=== PATIENT | female | born 1985 | race American Indian/Alaskan Native ===

== ENCOUNTER 2020-05-11 13:38 | Inpatient (IN) | payer MEDICAID ==
[2020-05-11] MEDS ORDERED: hydrALAZINE 20 MG/1 ML INJ ONE (14:27)
[2020-05-11] MEDS: hydrALAZINE 20 MG/1 ML INJ IV PRN ×2 (14:34→16:09)
[2020-05-11 14:44] LABS: Hematocrit 30.2 % (30.3-42.9); Hemoglobin 10.6 gm/dl (10.1-14.3); Mean Corpuscular HGB Conc 35 % (30-34); Mean Corpuscular Volume 88 fl (79-97); Platelet Count 252 K/mm3 (140-440); Red Blood Count 3.44 M/mm3 (3.65-5.03); Red Cell Distribution Width 13.8 % (13.2-15.2)
[2020-05-11 14:54] LABS: Bacteria,Urine 1+ /HPF (Negative); Bilirubin,Urine NEG (Negative); Blood,Urine NEG (Negative); Color,Urine Yellow (Yellow); Hyaline Casts,Urine 1 /LPF; Mucus,Urine FEW /HPF
[2020-05-11 14:56] LABS: Protein,Urine >500 mg/dL (Negative)
[2020-05-11 15:00] LABS: Alanine Aminotransferase 22 units/L (7-56); Uric Acid 2.3 mg/dL (3.5-7.6)
[2020-05-11] MEDS: ACETAMINOPHEN 500 MG TAB PO PRN (16:14)
[2020-05-11] MEDS: BETAMET ACET/BETAMET NA PH 6 MG/ML INJ 5 ML MDV IM SCH (16:19)
[2020-05-11] MEDS ORDERED: MAGNESIUM SULFATE 4 GM/100 ML BAG IV ONE (17:00)
[2020-05-11] MEDS: LACTATED RINGERS 1,000 ML IV SCH (17:15)
[2020-05-11] MEDS: MAGNESIUM SULFATE 40GM/1000ML 40 GM/1,000 ML BAG IV SCH (17:45)
[2020-05-11] MEDS ORDERED: CALCIUM GLUCONATE 1000 MG/10 ML INJ IV ONE (18:00)
--- NOTE | 2020-05-11 20:32 | History and Physical Report ---
History of Present Illness Date of examination: 05/11/20 Date of admission: 05/11/20 18:53 Chief complaint: My blood pressure is high History of present illness: Pt is a 34 year old who presents from the office with complaint of headache and blood pressure in 160-170/90-110 range. This is higher than normal for this patient. Pt has a history of chronic hypertension and was recently diagnosed with MS. 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 She is GBS negative. 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 History: herpes Social history: single - Obstetrical History Expected Date of Delivery: 06/14/20 Actual Gestation: 35 Week(s) 1 Day(s) : 2 Number of Living Children: 1 Medications and Allergies Allergies Allergy/AdvReac Type Severity Reaction Status Date / Time No Known Allergies Allergy Unverified 05/11/20 13:53 Active Meds: Active Medications Acetaminophen (Acetaminophen 500 Mg Tab) 1,000 mg PO Q6H PRN PRN Reason: Pain, Mild (1-3) Last Admin: 05/11/20 16:14 Dose: 1,000 mg Documented by: Betamethasone Acet/Betameth SodPhos (Betamet Acet/Betamet Na Ph 6 Mg/Ml Inj 5 Ml Mdv) 12 mg IM Q24H OLEKSANDR Stop: 05/12/20 16:01 Last Admin: 05/11/20 16:19 Dose: 12 mg Documented by: Hydralazine HCl (Hydralazine 20 Mg/1 Ml Inj) 5 mg IV Q30MIN PRN PRN Reason: Blood Pressure Last Admin: 05/11/20 16:09 Dose: 5 mg Documented by: Lactated Ringer's (Lactated Ringers) 1,000 mls @ 125 mls/hr IV DIRECT OLEKSANDR Last Infusion: 05/11/20 17:45 Dose: 75 mls/hr Documented by: Magnesium Sulfate (Magnesium Sulfate 4gm/100ml) 4 gm in 100 mls @ 25 mls/hr IV ONCE ONE Stop: 05/11/20 20:59 Last Admin: 05/11/20 17:15 Dose: 25 mls/hr Documented by: Magnesium Sulfate (Magnesium Sulfate 40gm/1000ml) 40 gm in 1,000 mls @ 50 mls/hr IV DIRECT OLEKSANDR Last Admin: 05/11/20 17:45 Dose: 2 gm/hr, 50 mls/hr Documented by: Labetalol HCl (Labetalol 200 Mg Tab) 300 mg PO BID [facility] Last Admin: 05/11/20 16:14 Dose: 300 mg Documented by: Review of Systems All systems: negative Constitutional: weakness Cardiovascular: lightheadedness Genitourinary: deferred Neurological: weakness, numbness, tingling, gait dysfunction - Vital Signs Vital signs: Vital Signs Temp Resp 99.0 F 22 05/11/20 14:08 05/11/20 14:08 Temp Pulse Resp BP Pulse Ox 98.0 F 83 14 149/79 99 05/11/20 19:50 05/11/20 20:28 05/11/20 19:50 05/11/20 20:14 05/11/20 20:28 - Physical Exam Breasts: Cardiovascular: Regular rate, Normal S1, Normal S2 Lungs: Positive: Clear to auscultation, Normal air movement Abdomen: Positive: normal appearance, soft, normal bowel sounds. Negative: distention, tenderness Vulva: both: normal Cervix: Positive: lesion Uterus: Positive: normal size, normal contour Adnexa: both: normal Anus/Rectum: Positive: normal perianal skin, heme negative. Negative: rectal mass, hemorrhoids Extremities: Deep Tendon Reflex Grade: Normal +2 Results Result Diagrams: 05/11/20 14:15 05/11/20 14:15 Abnormal lab results 05/11/20 05/11/20 Range/Units 14:15 14:15 RBC 3.44 L (3.65-5.03) M/mm3 Hct 30.2 L (30.3-42.9) % MCHC 35 H (30-34) % Creatinine 0.4 L (0.6-1.2) mg/dL Uric Acid 2.3 L (3.5-7.6) mg/dL Lactate Dehydrogenase 190 H (91-180) units/L All other labs normal. Assessment and Plan Pt is here for monitoring and assessment secondary to chronic hypertension with likely superimposed preeclampsia. Will admit for monitoring and serial blood pressure. Will administer betamethasone for lung maturity. Begin magnesium for seizure prophylaxis and initiate 24 hour urine. Consult [facility] for co-management as patient is known to group.
[2020-05-11] MEDS ORDERED: diphenhydrAMINE 50 MG CAP PO ONE (22:29)
[2020-05-11] MEDS ORDERED: diphenhydrAMINE 50 MG CAP PO NR (23:30)
[2020-05-12] MEDS: hydrALAZINE 20 MG/1 ML INJ IV PRN ×2 (08:46→20:27)
[2020-05-12] MEDS: MAGNESIUM SULFATE 40GM/1000ML 40 GM/1,000 ML BAG IV SCH ×2 (14:09→23:34)
[2020-05-12] MEDS: BETAMET ACET/BETAMET NA PH 6 MG/ML INJ 5 ML MDV IM SCH (17:01)
--- NOTE | 2020-05-12 17:35 | Progress Note ---
Assessment and Plan IUP at 35.3 weeks with chronic hypertension and likely superimposed preeclampsia. We are awaiting completion of 24 hour urine and consult from [facility] regarding continuing to monitor vs. proceeding with delivery. Subjective - Subjective Date of service: 05/12/20 Interval history: Pt is a 34 year old who presents from the office with complaint of headache and blood pressure in 160-170/90-110 range. This is higher than normal for this patient. Pt has a history of chronic hypertension and was recently diagnosed with MS. 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 She is GBS negative. Patient reports: contractions (occasional) Objective - Vital Signs Vital Signs: Vital Signs - 12hr 05/12/20 05/12/20 05/12/20 05:33 05:38 05:43 Temperature Pulse Rate 97 H 90 93 H Respiratory Rate Blood Pressure Blood Pressure [Right] O2 Sat by Pulse 96 98 98 Oximetry 05/12/20 05/12/20 05/12/20 05:48 05:53 05:58 Temperature Pulse Rate 92 H 93 H 92 H Respiratory Rate Blood Pressure Blood Pressure [Right] O2 Sat by Pulse 98 99 100 Oximetry 05/12/20 05/12/20 05/12/20 06:03 06:06 06:08 Temperature Pulse Rate 90 94 H 93 H Respiratory Rate Blood Pressure 182/84 164/77 Blood Pressure [Right] O2 Sat by Pulse 99 99 Oximetry 05/12/20 05/12/20 05/12/20 06:13 06:18 06:23 Temperature Pulse Rate 89 95 H 95 H Respiratory Rate Blood Pressure 153/73 Blood Pressure [Right] O2 Sat by Pulse 98 100 98 Oximetry 05/12/20 05/12/20 05/12/20 06:28 06:33 06:38 Temperature Pulse Rate 96 H 94 H 94 H Respiratory Rate Blood Pressure Blood Pressure [Right] O2 Sat by Pulse 99 100 99 Oximetry 05/12/20 05/12/20 05/12/20 06:43 06:45 06:48 Temperature Pulse Rate 94 H 93 H 93 H Respiratory Rate Blood Pressure 161/78 Blood Pressure [Right] O2 Sat by Pulse 99 100 Oximetry 05/12/20 05/12/20 05/12/20 06:53 06:58 07:03 Temperature Pulse Rate 92 H 91 H 94 H Respiratory Rate Blood Pressure Blood Pressure [Right] O2 Sat by Pulse 99 98 98 Oximetry 05/12/20 05/12/20 05/12/20 07:08 07:13 07:14 Temperature Pulse Rate 93 H 91 H 92 H Respiratory Rate Blood Pressure 167/80 Blood Pressure [Right] O2 Sat by Pulse 98 98 Oximetry 05/12/20 05/12/20 05/12/20 07:18 07:23 07:28 Temperature Pulse Rate 94 H 92 H 92 H Respiratory Rate Blood Pressure Blood Pressure [Right] O2 Sat by Pulse 98 98 99 Oximetry 05/12/20 05/12/20 05/12/20 07:33 07:38 07:43 Temperature Pulse Rate 91 H 92 H 92 H Respiratory Rate Blood Pressure Blood Pressure [Right] O2 Sat by Pulse 97 99 99 Oximetry 05/12/20 05/12/20 05/12/20 07:44 07:48 07:53 Temperature Pulse Rate 90 90 97 H Respiratory Rate Blood Pressure 179/90 Blood Pressure [Right] O2 Sat by Pulse 99 100 Oximetry 05/12/20 05/12/20 05/12/20 07:58 08:03 08:08 Temperature Pulse Rate 96 H 99 H 98 H Respiratory Rate Blood Pressure Blood Pressure [Right] O2 Sat by Pulse 100 98 100 Oximetry 05/12/20 05/12/20 05/12/20 08:13 08:14 08:18 Temperature 98.1 F Pulse Rate 95 H 94 H Respiratory 18 Rate Blood Pressure 142/73 Blood Pressure 172/83 [Right] O2 Sat by Pulse 96 78 L 99 Oximetry 05/12/20 05/12/20 05/12/20 08:19 08:23 08:28 Temperature Pulse Rate 93 H 95 H 91 H Respiratory Rate Blood Pressure 172/83 Blood Pressure [Right] O2 Sat by Pulse 100 98 Oximetry 05/12/20 05/12/20 05/12/20 08:32 08:33 08:38 Temperature Pulse Rate 93 H 95 H 99 H Respiratory Rate Blood Pressure 182/87 Blood Pressure [Right] O2 Sat by Pulse 83 L 99 100 Oximetry 05/12/20 05/12/20 05/12/20 08:43 08:46 08:48 Temperature Pulse Rate 88 93 H 93 H Respiratory Rate Blood Pressure 174/78 174/78 Blood Pressure [Right] O2 Sat by Pulse 99 99 Oximetry 05/12/20 05/12/20 05/12/20 08:53 08:58 09:01 Temperature Pulse Rate 98 H 94 H 95 H Respiratory Rate Blood Pressure 183/93 Blood Pressure [Right] O2 Sat by Pulse 99 98 Oximetry 05/12/20 05/12/20 05/12/20 09:03 09:08 09:13 Temperature Pulse Rate 100 H 100 H 96 H Respiratory Rate Blood Pressure 224/98 Blood Pressure [Right] O2 Sat by Pulse 99 99 99 Oximetry 05/12/20 05/12/20 05/12/20 09:18 09:23 09:28 Temperature Pulse Rate 99 H 99 H 100 H Respiratory Rate Blood Pressure Blood Pressure [Right] O2 Sat by Pulse 99 98 98 Oximetry 05/12/20 05/12/20 05/12/20 09:33 09:38 09:43 Temperature Pulse Rate 99 H 98 H 96 H Respiratory Rate Blood Pressure 168/90 Blood Pressure [Right] O2 Sat by Pulse 100 99 100 Oximetry 05/12/20 05/12/20 05/12/20 09:48 09:53 09:58 Temperature Pulse Rate 101 H 97 H 96 H Respiratory Rate Blood Pressure 168/90 Blood Pressure [Right] O2 Sat by Pulse 100 99 100 Oximetry 05/12/20 05/12/20 05/12/20 10:03 10:08 10:13 Temperature Pulse Rate 96 H 99 H 95 H Respiratory Rate Blood Pressure 156/78 Blood Pressure [Right] O2 Sat by Pulse 99 100 100 Oximetry 05/12/20 05/12/20 05/12/20 10:18 10:23 10:28 Temperature Pulse Rate 95 H 93 H 91 H Respiratory Rate Blood Pressure Blood Pressure [Right] O2 Sat by Pulse 99 100 100 Oximetry 05/12/20 05/12/20 05/12/20 10:33 10:38 10:43 Temperature Pulse Rate 90 90 86 Respiratory Rate Blood Pressure 146/73 Blood Pressure [Right] O2 Sat by Pulse 99 99 98 Oximetry 05/12/20 05/12/20 05/12/20 10:48 10:53 10:58 Temperature Pulse Rate 89 86 88 Respiratory Rate Blood Pressure Blood Pressure [Right] O2 Sat by Pulse 98 98 99 Oximetry 05/12/20 05/12/20 05/12/20 11:03 11:08 11:13 Temperature Pulse Rate 88 88 92 H Respiratory Rate Blood Pressure 124/60 Blood Pressure [Right] O2 Sat by Pulse 98 98 98 Oximetry 05/12/20 05/12/20 05/12/20 11:18 11:23 11:28 Temperature Pulse Rate 89 88 89 Respiratory Rate Blood Pressure Blood Pressure [Right] O2 Sat by Pulse 100 100 99 Oximetry 05/12/20 05/12/20 05/12/20 11:33 11:38 11:43 Temperature Pulse Rate 90 89 88 Respiratory Rate Blood Pressure 130/62 Blood Pressure [Right] O2 Sat by Pulse 99 99 99 Oximetry 05/12/20 05/12/20 05/12/20 11:48 11:53 11:58 Temperature Pulse Rate 88 91 H 90 Respiratory Rate Blood Pressure Blood Pressure [Right] O2 Sat by Pulse 99 99 99 Oximetry 05/12/20 05/12/20 05/12/20 12:03 12:08 12:13 Temperature Pulse Rate 95 H 91 H 90 Respiratory Rate Blood Pressure 141/79 Blood Pressure [Right] O2 Sat by Pulse 99 100 99 Oximetry 05/12/20 05/12/20 05/12/20 12:18 12:23 12:28 Temperature 98.0 F Pulse Rate 95 H 90 97 H Respiratory 18 Rate Blood Pressure Blood Pressure 141/79 [Right] O2 Sat by Pulse 100 99 99 Oximetry 05/12/20 05/12/20 05/12/20 12:33 12:38 12:43 Temperature Pulse Rate 92 H 98 H 90 Respiratory Rate Blood Pressure 147/73 Blood Pressure [Right] O2 Sat by Pulse 99 98 98 Oximetry 05/12/20 05/12/20 05/12/20 12:48 12:53 12:58 Temperature Pulse Rate 92 H 89 90 Respiratory Rate Blood Pressure Blood Pressure [Right] O2 Sat by Pulse 98 98 99 Oximetry 05/12/20 05/12/20 05/12/20 13:03 13:08 13:13 Temperature Pulse Rate 89 90 87 Respiratory Rate Blood Pressure 146/70 Blood Pressure [Right] O2 Sat by Pulse 98 100 98 Oximetry 05/12/20 05/12/20 05/12/20 13:18 13:23 13:28 Temperature Pulse Rate 90 88 86 Respiratory Rate Blood Pressure Blood Pressure [Right] O2 Sat by Pulse 98 99 99 Oximetry 05/12/20 05/12/20 05/12/20 13:33 13:38 13:43 Temperature Pulse Rate 87 87 88 Respiratory Rate Blood Pressure 148/77 Blood Pressure [Right] O2 Sat by Pulse 97 98 98 Oximetry 05/12/20 05/12/20 05/12/20 13:48 13:53 13:58 Temperature Pulse Rate 86 85 85 Respiratory Rate Blood Pressure Blood Pressure [Right] O2 Sat by Pulse 98 97 97 Oximetry 05/12/20 05/12/20 05/12/20 14:03 14:08 14:13 Temperature Pulse Rate 85 88 89 Respiratory Rate Blood Pressure 149/79 Blood Pressure [Right] O2 Sat by Pulse 98 97 98 Oximetry 05/12/20 05/12/20 05/12/20 14:18 14:23 14:28 Temperature Pulse Rate 86 95 H 91 H Respiratory Rate Blood Pressure Blood Pressure [Right] O2 Sat by Pulse 98 98 99 Oximetry 05/12/20 05/12/20 05/12/20 14:33 14:38 14:43 Temperature Pulse Rate 83 87 86 Respiratory Rate Blood Pressure 160/80 Blood Pressure [Right] O2 Sat by Pulse 97 97 97 Oximetry 05/12/20 05/12/20 05/12/20 14:48 14:53 14:58 Temperature Pulse Rate 85 87 86 Respiratory Rate Blood Pressure Blood Pressure [Right] O2 Sat by Pulse 99 98 98 Oximetry 05/12/20 05/12/20 05/12/20 15:03 15:08 15:13 Temperature Pulse Rate 85 85 84 Respiratory Rate Blood Pressure Blood Pressure [Right] O2 Sat by Pulse 98 99 99 Oximetry 05/12/20 05/12/20 05/12/20 15:14 15:18 15:23 Temperature Pulse Rate 85 90 93 H Respiratory Rate Blood Pressure 144/72 Blood Pressure [Right] O2 Sat by Pulse 100 99 Oximetry 05/12/20 05/12/20 05/12/20 15:28 15:33 15:38 Temperature Pulse Rate 83 92 H 89 Respiratory Rate Blood Pressure Blood Pressure [Right] O2 Sat by Pulse 100 99 99 Oximetry 05/12/20 05/12/20 05/12/20 15:43 15:44 15:48 Temperature Pulse Rate 87 90 87 Respiratory Rate Blood Pressure 137/69 Blood Pressure [Right] O2 Sat by Pulse 99 98 Oximetry 05/12/20 05/12/20 05/12/20 15:53 15:58 16:03 Temperature Pulse Rate 87 87 87 Respiratory Rate Blood Pressure Blood Pressure [Right] O2 Sat by Pulse 98 99 98 Oximetry 05/12/20 05/12/20 05/12/20 16:04 16:05 16:08 Temperature 98.0 F Pulse Rate 86 88 93 H Respiratory 18 Rate Blood Pressure 154/83 Blood Pressure 154/83 [Right] O2 Sat by Pulse 97 98 Oximetry 05/12/20 05/12/20 05/12/20 16:13 16:18 16:23 Temperature Pulse Rate 86 91 H 85 Respiratory Rate Blood Pressure 144/68 Blood Pressure [Right] O2 Sat by Pulse 98 99 98 Oximetry 05/12/20 05/12/20 05/12/20 16:28 16:33 16:38 Temperature Pulse Rate 84 89 88 Respiratory Rate Blood Pressure Blood Pressure [Right] O2 Sat by Pulse 97 99 97 Oximetry 05/12/20 05/12/20 05/12/20 16:43 16:45 16:48 Temperature Pulse Rate 89 87 90 Respiratory Rate Blood Pressure 145/69 Blood Pressure [Right] O2 Sat by Pulse 98 98 Oximetry 05/12/20 05/12/20 05/12/20 16:53 16:58 17:03 Temperature Pulse Rate 85 90 91 H Respiratory Rate Blood Pressure Blood Pressure [Right] O2 Sat by Pulse 100 98 98 Oximetry 05/12/20 05/12/20 05/12/20 17:08 17:13 17:18 Temperature Pulse Rate 95 H 86 95 H Respiratory Rate Blood Pressure 165/89 Blood Pressure [Right] O2 Sat by Pulse 97 100 100 Oximetry 05/12/20 05/12/20 17:23 17:28 Temperature Pulse Rate 93 H 90 Respiratory Rate Blood Pressure Blood Pressure [Right] O2 Sat by Pulse 99 99 Oximetry - Exam Breasts: deferred Cardiovascular: Regular rate, Normal S1, Normal S2 Lungs: Clear to auscultation, Normal air movement Abdomen: Present: normal appearance, normal bowel sounds Uterus: Present: normal FHR: auscultation normal Cervical Dilatation: 1 Cervical Effacement Percentage: 40 station: -3 Extremities: other (weakness on right side) Deep Tendon Reflex Grade: Dull/Diminished +1 - Labs Labs: Abnormal Labs 05/11/20 05/11/20 05/12/20 14:15 14:15 00:29 RBC 3.44 L Hct 30.2 L MCHC 35 H Creatinine 0.4 L Uric Acid 2.3 L Magnesium 4.10 H Lactate Dehydrogenase 190 H 05/12/20 05/12/20 05:44 14:23 RBC Hct MCHC Creatinine Uric Acid Magnesium 4.40 H 4.50 H Lactate Dehydrogenase Laboratory Results - last 24 hr 05/12/20 05/12/20 05/12/20 00:29 05:44 14:23 Magnesium 4.10 H 4.40 H 4.50 H
[2020-05-12] MEDS ORDERED: diphenhydrAMINE 50 MG/ML VIAL IV PRN (21:22)
[2020-05-12] MEDS ORDERED: miSOPROStol 200 MCG TAB PR PRN (21:26)
[2020-05-12] MEDS ORDERED: ONDANSETRON 4 MG/2 ML INJ IV PRN (21:26)
[2020-05-12] MEDS ORDERED: MINERAL OIL 30 ML ORAL LIQD PO PRN (21:26)
[2020-05-12] MEDS ORDERED: fentaNYL 100 MCG/2 ML INJ IV PRN (21:26)
[2020-05-12] MEDS ORDERED: ePHEDrine SULFATE 50 MG/1 ML INJ IV PRN (21:26)
[2020-05-12] MEDS ORDERED: NALOXONE 0.4 MG/1 ML INJ IV PRN (21:26)
[2020-05-12] MEDS ORDERED: AMPICILLIN/NS 2 GM/100 ML 2 GM/100 ML BAG IV ONE (21:26)
[2020-05-12] MEDS ORDERED: TERBUTALINE 1 MG/1 ML INJ SUB-Q PRN (21:26)
[2020-05-12] MEDS ORDERED: LIDOCAINE (2%) 20 MG/1 ML VIAL 20 ML MDV INFILTRATI ONE (21:26)
[2020-05-12] MEDS ORDERED: BUTORPHANOL 2 MG/1 ML INJ IV PRN ×2 (21:26→21:34)
[2020-05-12] MEDS ORDERED: OXYTOCIN 10 UNIT/1 ML INJ IM PRN (21:26)
[2020-05-12] MEDS ORDERED: LACTATED RINGERS 1,000 ML IV SCH (21:30)
--- NOTE | 2020-05-12 21:36 | Event Note ---
Date: 05/12/20 On-call provider notified of 24 hr urine protein of 2167.50 mg. Diagnosis of chronic hypertension with superimposed preeclampsia confirmed. No documentation of presentation on chart. Ultrasound for presentation and EFW. If cephalic, proceed with induction of labor. Magnesium sulfate discontinued earlier without contacting on-call provider. Resume magnesium sulfate for seizure prophylaxis.
[2020-05-12] MEDS ORDERED: MAGNESIUM SULFATE 4 GM/100 ML BAG IV ONE (21:48)
[2020-05-12] MEDS ORDERED: OXYTOCIN DRIP 30 UNITS/500 ML BAG IV SCH ×2 (22:00)
--- NOTE | 2020-05-12 22:45 | Ultrasound Report ---
ULTRASOUND OBSTETRIC LIMITED INDICATION / CLINICAL INFORMATION: IUP at 35 wks, chtn with superimposed preeclampsia. Clinical Gestational Age (GA) in weeks, days: 35 weeks 2 days TECHNIQUE: Transabdominal. COMPARISON: None available. FINDINGS: HEART RATE (beats per minute): 125 AMNIOTIC FLUID INDEX (cm) = 13.6 (normal = 7-24 cm) PRESENTATION: Cephalic. ADDITIONAL FINDINGS: Placenta is located anteriorly without evidence of previa. IMPRESSION: 1. Single viable IUP in a cephalic presentation with normal LITA. Signer Name: Christy Garcia MD Signed: 05/12/2020 10:40 PM Workstation Name: [id number]
[2020-05-12] MEDS ORDERED: DINOPROSTONE 10 MG VAG SUPP VG ONE (23:15)
[2020-05-13] MEDS ORDERED: AMPICILLIN/NS 1 GM/50 ML 1 GM/50 ML BAG IV SCH (01:28)
[2020-05-13] MEDS: hydrALAZINE 20 MG/1 ML INJ IV PRN ×3 (01:39→03:49)
[2020-05-13] MEDS: ACETAMINOPHEN 500 MG TAB PO PRN (07:35)
[2020-05-13] MEDS: valACYclovir 500 MG TAB PO SCH (12:01)
--- NOTE | 2020-05-13 12:06 | Progress Note ---
Assessment and Plan A: IUP at 35w3d s/p Betamethasone 12 mg IM x 2 doses Chronic hypertension with superimposed preeclampsia; on magnesium sulfate for seizure prophylaxis, Labetalol 300 mg BID, Hydralazine PRN undergoing induction of labor, s/p cervidil Morbid Obesity BMI 47 New diagnosis of MS Genital Herpes without lesion or prodrome GBS unknown P: Continue induction with low dose pitocin Closely monitor maternal and status Subjective - Subjective Date of service: 05/13/20 Principal diagnosis: IUP at 35w3d, CHTN with superimposed preeclampsia, MO, MS Interval history: No issues overnight. Minimal contraction on cervidil. Patient reports: movement normal, contractions (occasional), no new complaints, no loss of fluid, no vaginal bleeding Objective - Vital Signs Vital Signs: Vital Signs - 12hr 05/13/20 05/13/20 05/13/20 00:08 00:12 00:17 Temperature Pulse Rate 83 82 86 Respiratory Rate Blood Pressure 157/79 146/73 O2 Sat by Pulse 98 99 Oximetry 05/13/20 05/13/20 05/13/20 00:22 00:27 00:32 Temperature Pulse Rate 86 87 78 Respiratory Rate Blood Pressure O2 Sat by Pulse 99 99 98 Oximetry 05/13/20 05/13/20 05/13/20 00:37 00:42 00:47 Temperature Pulse Rate 82 78 75 Respiratory Rate Blood Pressure 145/92 O2 Sat by Pulse 99 99 99 Oximetry 05/13/20 05/13/20 05/13/20 00:52 00:57 01:02 Temperature Pulse Rate 76 81 82 Respiratory Rate Blood Pressure O2 Sat by Pulse 99 99 99 Oximetry 05/13/20 05/13/20 05/13/20 01:07 01:12 01:17 Temperature Pulse Rate 82 81 83 Respiratory Rate Blood Pressure 181/88 O2 Sat by Pulse 98 99 98 Oximetry 05/13/20 05/13/20 05/13/20 01:22 01:27 01:32 Temperature Pulse Rate 82 85 84 Respiratory Rate Blood Pressure O2 Sat by Pulse 97 97 97 Oximetry 05/13/20 05/13/20 05/13/20 01:37 01:39 01:42 Temperature Pulse Rate 81 84 84 Respiratory Rate Blood Pressure 177/83 177/83 175/84 O2 Sat by Pulse 99 99 Oximetry 05/13/20 05/13/20 05/13/20 01:47 01:52 01:57 Temperature Pulse Rate 84 81 85 Respiratory Rate Blood Pressure O2 Sat by Pulse 99 98 98 Oximetry 05/13/20 05/13/20 05/13/20 02:02 02:07 02:12 Temperature Pulse Rate 86 84 82 Respiratory Rate Blood Pressure 171/80 O2 Sat by Pulse 98 98 98 Oximetry 05/13/20 05/13/20 05/13/20 02:17 02:22 02:27 Temperature Pulse Rate 94 H 89 91 H Respiratory Rate Blood Pressure 171/80 O2 Sat by Pulse 99 98 98 Oximetry 05/13/20 05/13/20 05/13/20 02:32 02:37 02:42 Temperature Pulse Rate 90 95 H 90 Respiratory Rate Blood Pressure 143/70 O2 Sat by Pulse 98 98 99 Oximetry 05/13/20 05/13/20 05/13/20 02:47 02:52 02:57 Temperature Pulse Rate 91 H 90 94 H Respiratory Rate Blood Pressure O2 Sat by Pulse 98 99 98 Oximetry 05/13/20 05/13/20 05/13/20 03:02 03:07 03:12 Temperature Pulse Rate 89 92 H 88 Respiratory Rate Blood Pressure O2 Sat by Pulse 99 98 99 Oximetry 05/13/20 05/13/20 05/13/20 03:13 03:17 03:22 Temperature Pulse Rate 90 89 89 Respiratory Rate Blood Pressure 175/82 O2 Sat by Pulse 99 99 Oximetry 05/13/20 05/13/20 05/13/20 03:27 03:32 03:37 Temperature Pulse Rate 92 H 92 H 90 Respiratory Rate Blood Pressure O2 Sat by Pulse 99 99 99 Oximetry 05/13/20 05/13/20 05/13/20 03:42 03:47 03:49 Temperature Pulse Rate 90 91 H 92 H Respiratory Rate Blood Pressure 175/84 175/84 O2 Sat by Pulse 98 98 Oximetry 05/13/20 05/13/20 05/13/20 03:52 03:53 03:57 Temperature 98.1 F Pulse Rate 95 H 95 H Respiratory 20 Rate Blood Pressure O2 Sat by Pulse 99 98 99 Oximetry 05/13/20 05/13/20 05/13/20 04:02 04:05 04:07 Temperature Pulse Rate 91 H 91 H 101 H Respiratory Rate Blood Pressure 141/77 O2 Sat by Pulse 99 98 Oximetry 05/13/20 05/13/20 05/13/20 04:11 04:12 04:13 Temperature Pulse Rate 94 H 95 H 92 H Respiratory Rate Blood Pressure 137/72 155/73 O2 Sat by Pulse 98 Oximetry 05/13/20 05/13/20 05/13/20 04:17 04:22 04:27 Temperature Pulse Rate 95 H 98 H 93 H Respiratory Rate Blood Pressure O2 Sat by Pulse 99 99 99 Oximetry 05/13/20 05/13/20 05/13/20 04:32 04:37 04:42 Temperature Pulse Rate 97 H 98 H 98 H Respiratory Rate Blood Pressure O2 Sat by Pulse 99 99 99 Oximetry 05/13/20 05/13/20 05/13/20 04:43 04:47 04:52 Temperature Pulse Rate 96 H 94 H 98 H Respiratory Rate Blood Pressure 151/76 O2 Sat by Pulse 99 99 Oximetry 05/13/20 05/13/20 05/13/20 04:57 05:02 05:07 Temperature Pulse Rate 95 H 105 H 95 H Respiratory Rate Blood Pressure O2 Sat by Pulse 99 99 98 Oximetry 05/13/20 05/13/20 05/13/20 05:12 05:17 05:22 Temperature Pulse Rate 96 H 94 H 94 H Respiratory Rate Blood Pressure 133/70 O2 Sat by Pulse 99 97 97 Oximetry 05/13/20 05/13/20 05/13/20 05:27 05:32 05:37 Temperature Pulse Rate 96 H 93 H 98 H Respiratory Rate Blood Pressure O2 Sat by Pulse 98 98 98 Oximetry 05/13/20 05/13/20 05/13/20 05:42 05:47 05:52 Temperature Pulse Rate 98 H 98 H 101 H Respiratory Rate Blood Pressure 134/66 O2 Sat by Pulse 97 97 97 Oximetry 05/13/20 05/13/20 05/13/20 05:57 06:02 06:07 Temperature Pulse Rate 108 H 98 H 99 H Respiratory Rate Blood Pressure O2 Sat by Pulse 99 99 98 Oximetry 05/13/20 05/13/20 05/13/20 06:12 06:13 06:17 Temperature Pulse Rate 96 H 96 H 103 H Respiratory Rate Blood Pressure 135/64 O2 Sat by Pulse 98 99 Oximetry 05/13/20 05/13/20 05/13/20 06:22 06:27 06:32 Temperature Pulse Rate 100 H 94 H 97 H Respiratory Rate Blood Pressure O2 Sat by Pulse 99 98 99 Oximetry /20/21 /20/21 /20/21 06:38 06:43 06:48 Temperature Pulse Rate 97 H 96 H 95 H Respiratory Rate Blood Pressure 156/70 O2 Sat by Pulse 99 99 98 Oximetry 20/21 /20/21 /20/21 06:53 06:58 07:03 Temperature Pulse Rate 92 H 98 H 97 H Respiratory Rate Blood Pressure O2 Sat by Pulse 98 99 98 Oximetry 20/21 /20/21 /20/21 07:08 07:13 07:18 Temperature Pulse Rate 97 H 95 H 94 H Respiratory Rate Blood Pressure 144/76 O2 Sat by Pulse 98 99 98 Oximetry 20/14 05/20/21 /20/ 07:23 07:28 07:33 Temperature Pulse Rate 95 H 96 H 96 H Respiratory Rate Blood Pressure O2 Sat by Pulse 98 99 98 Oximetry 20/20/21 // 07:38 07:43 07:44 Temperature Pulse Rate 94 H 94 H 93 H Respiratory Rate Blood Pressure 163/80 O2 Sat by Pulse 99 99 Oximetry 20/21 /20/21 /20/21 07:48 07:53 07:58 Temperature Pulse Rate 94 H 98 H 94 H Respiratory Rate Blood Pressure O2 Sat by Pulse 99 98 99 Oximetry 20/21 /20/21 /20/21 08:03 08:08 08:12 Temperature Pulse Rate 93 H 92 H 90 Respiratory Rate Blood Pressure 151/72 O2 Sat by Pulse 98 99 Oximetry 20/21 /20/21 /20/21 08:13 08:18 08:23 Temperature Pulse Rate 92 H 102 H 99 H Respiratory Rate Blood Pressure O2 Sat by Pulse 98 98 99 Oximetry 20/21 /20/21 /20/21 08:28 08:33 08:38 Temperature Pulse Rate 98 H 99 H 95 H Respiratory Rate Blood Pressure O2 Sat by Pulse 99 98 99 Oximetry 20/21 /20/21 /20/21 08:43 08:48 08:53 Temperature Pulse Rate 96 H 94 H 88 Respiratory Rate Blood Pressure 140/81 O2 Sat by Pulse 99 98 99 Oximetry 20/21 05/13/20 05/13/20 08:58 09:03 09:08 Temperature Pulse Rate 88 88 90 Respiratory Rate Blood Pressure O2 Sat by Pulse 99 100 100 Oximetry 05/13/20 05/13/20 05/13/20 09:13 09:14 09:18 Temperature Pulse Rate 95 H 90 92 H Respiratory Rate Blood Pressure 197/89 O2 Sat by Pulse 99 99 Oximetry 05/13/2005/13/05/13/20 09:23 09:28 09:33 Temperature Pulse Rate 89 89 96 H Respiratory Rate Blood Pressure O2 Sat by Pulse 99 100 99 Oximetry 05/13/2005/13/05/13/20 09:38 09:41 09:43 Temperature Pulse Rate 92 H 91 H 89 Respiratory Rate Blood Pressure 186/92 186/92 O2 Sat by Pulse 99 99 Oximetry 05/13/20 05/13/20 05/13/20 09:48 09:53 09:58 Temperature Pulse Rate 94 H 90 85 Respiratory Rate Blood Pressure O2 Sat by Pulse 100 99 100 Oximetry 05/13/20 05/13/20 05/13/20 10:03 10:08 10:13 Temperature Pulse Rate 93 H 91 H 86 Respiratory Rate Blood Pressure 148/89 O2 Sat by Pulse 99 98 99 Oximetry 05/13/2005/13/05/13/20 10:18 10:23 10:28 Temperature Pulse Rate 83 82 83 Respiratory Rate Blood Pressure O2 Sat by Pulse 98 98 98 Oximetry 05/13/2005/13/05/13/20 10:33 10:38 10:43 Temperature Pulse Rate 79 82 83 Respiratory Rate Blood Pressure 176/82 O2 Sat by Pulse 98 98 98 Oximetry 05/13/2005/13/05/13/20 10:48 10:53 10:58 Temperature Pulse Rate 81 86 79 Respiratory Rate Blood Pressure O2 Sat by Pulse 98 97 98 Oximetry 05/13/2020/05/13/20 11:03 11:08 11:13 Temperature Pulse Rate 86 82 92 H Respiratory Rate Blood Pressure O2 Sat by Pulse 98 97 99 Oximetry 05/13/2020/05/13/20 11:14 11:18 11:23 Temperature Pulse Rate 81 83 83 Respiratory Rate Blood Pressure 151/83 O2 Sat by Pulse 98 98 Oximetry 05/13/2005/1305/13/20 11:28 11:33 11:38 Temperature Pulse Rate 81 84 82 Respiratory Rate Blood Pressure O2 Sat by Pulse 99 99 98 Oximetry 05/13/20 05/13/20 05/13/20 11:43 11:48 11:53 Temperature Pulse Rate 83 89 84 Respiratory Rate Blood Pressure 154/85 O2 Sat by Pulse 99 98 99 Oximetry 05/13/20 05/13/20 11:58 12:03 Temperature Pulse Rate 86 88 Respiratory Rate Blood Pressure O2 Sat by Pulse 98 99 Oximetry - Exam Breasts: deferred Abdomen: Present: soft (obese, gravid ) Uterus: Present: normal (gravid ) FHR: auscultation normal Uterine Contraction Monitor Mode: External Cervical Dilatation: 1 Cervical Effacement Percentage: 40 station: -3 Uterine Contraction Pattern: Irregular Uterine Tone Measurement Phase: Resting Uterine Contraction Intensity: Mild Extremities: edema (trace ) - Labs Labs: Abnormal Labs 05/11/20 05/11/20 05/12/20 14:15 14:15 00:29 RBC 3.44 L Hct 30.2 L MCHC 35 H Creatinine 0.4 L Uric Acid 2.3 L Magnesium 4.10 H Lactate Dehydrogenase 190 H Ur Total Protein 24 Hr Urine Total Protein 05/12/20 05/12/20 05/12/20 05:44 14:23 18:40 RBC Hct MCHC Creatinine Uric Acid Magnesium 4.40 H 4.50 H 4.00 H Lactate Dehydrogenase Ur Total Protein 24 Hr Urine Total Protein 05/12/20 05/13/20 05/13/20 20:30 00:48 05:57 RBC Hct MCHC Creatinine Uric Acid Magnesium 4.60 H 4.70 H Lactate Dehydrogenase Ur Total Protein 24 Hr 2167.50 H Urine Total Protein 85 H Laboratory Results - last 24 hr 05/12/20 05/12/20 05/12/20 14:23 18:40 20:30 Magnesium 4.50 H 4.00 H Urine Total Volume 2550 Ur Total Protein 24 Hr 2167.50 H Urine Total Protein 85 H 05/13/20 05/13/20 00:48 05:57 Magnesium 4.60 H 4.70 H Urine Total Volume Ur Total Protein 24 Hr Urine Total Protein
[2020-05-13] MEDS: MAGNESIUM SULFATE 40GM/1000ML 40 GM/1,000 ML BAG IV SCH (19:37)
[2020-05-13] MEDS ORDERED: AMPICILLIN/NS 2 GM/100 ML 2 GM/100 ML BAG IV ONE ×2 (20:00)
--- NOTE | 2020-05-14 00:55 | Anesthesia Consultation ---
Anesthesia Consult and Med Hx Date of service: 05/14/20 - Airway Anesthetic Teeth Evaluation: Poor ROM Head & Neck: Adequate Mental/Hyoid Distance: Adequate Mallampati Class: Class III Intubation Access Assessment: Possibly Difficult - Pulmonary Exam CTA: Yes - Cardiac Exam Cardiac Exam: RRR - Pre-Operative Health Status ASA Pre-Surgery Classification: ASA3 Proposed Anesthetic Plan: Epidural - Pulmonary Hx Smoking: Yes (stop 2020) Hx Asthma: No Hx Respiratory Symptoms: No SOB: No COPD: No Home Oxygen Therapy: No Hx Pneumonia: No Hx Sleep Apnea: No - Cardiovascular System Hx Hypertension: Yes (CHTN) Hx Coronary Artery Disease: No Hx Heart Attack/AMI: No Hx Angina: No Hx Percutaneous Transluminal Coronary Angioplasty (PTCA): No Hx Cardia Arrhythmia: No Hx Pacemaker: No Hx Internal Defibrillator: No Hx Valvular Heart Disease: No Hx Heart Murmur: No Hx Peripheral Vascular Disease: No - Central Nervous System Hx Neuromuscular Disorder: Yes (Multiple Sclerosis) Hx Seizures: No CVA: No Hx Back Pain: Yes (walks with cane) Hx Psychiatric Problems: No - Gastrointestinal Hx Ulcer: No Hx Gastroesophageal Reflux Disease: Yes - Endocrine Hx Renal Disease: No Hx End Stage Renal Disease: No Hx Cirrhosis: No Hx Liver Disease: No Hx Insulin Dependent Diabetes: No Hx Non-Insulin Dependent Diabetes: No Hx Thyroid Disease: No Hx Hypothyroidism: No Hx Hyperthyroidism: No - Hematic Hx Anemia: No Hx Sickle Cell Disease: No - Other Systems Hx Alcohol Use: No Hx Substance Use: No Hx Cancer: No Hx Obesity: Yes
--- NOTE | 2020-05-14 01:54 | Progress Note ---
Labor Epidural - Labor Epidural Start Time: 01:07 Stop Time: 01:25 Performed by:: CHRISS MARTELL Procedure: Patient is requesting epidural for labor and pain. H&P, labs were reviewed. Patient IDed, H&P reviewed, all questions and concerns were answered, and consent was signed. Timeout was performed at bedside. Patient in sitting position. Sterile prep and drape was performed. 3ml of 1% lidocaine skin wheal at L[3]- L [4]. 18-gauge Tuohy epidural needle was advanced to loss of resistance with air technique 9.5cm. Negative CSF negative blood. Epidural catheter advanced to [12] centimeters. [negative] Aspiration [negative] test dose. Sterile dressing applied. Patient tolerated procedure.
[2020-05-14] MEDS ORDERED: BICITRA ORAL LIQD 30ML PO ONE (02:44)
[2020-05-14] MEDS ORDERED: SODIUM BICARB 8.4% 50 MEQ/50 ML VIAL IV ONE (02:55)
[2020-05-14] MEDS ORDERED: ONDANSETRON 4 MG/2 ML INJ ONE ×2 (02:55)
[2020-05-14] MEDS ORDERED: LIDOCAINE 2%/EPINEPHRINE 1:200,000 VIAL (20 ML) INFILTRATI ONE (02:55)
[2020-05-14] MEDS ORDERED: METOCLOPRAMIDE 10 MG/2 ML INJ IV NR (03:00)
[2020-05-14] MEDS ORDERED: FAMOTIDINE 20 MG/2 ML INJ IV NR (03:00)
[2020-05-14] MEDS ORDERED: ceFAZolin/STERILE WATER 2 GM/20 ML SYRINGE IV NR (03:00)
[2020-05-14] MEDS ORDERED: LIDOCAINE MPF (2%) 20 MG/1 ML VIAL 5 ML ONE ×2 (03:15→05:49)
[2020-05-14] MEDS ORDERED: KETOROLAC 30 MG/1 ML INJ ONE (03:26)
--- NOTE | 2020-05-14 04:13 | Procedure Note ---
OB Delivery Note - Delivery Date of Delivery: 05/14/20 Surgeon: DOMINGO CORONEL Estimated blood loss: 1000cc - Section Preop diagnosis: nonreassuring FHR tracing, other (chronic hypertension with superimposed preeclampsia ) Postop diagnosis: same section procedure: section, primary low transverse Disposition: PACU Complications: uterine atony Narrative: Please see operative report - A at 1 minute: 7 at 5 minutes: 9 Gender: Female (2330g (5lb 2oz) @ 0309 am)
--- NOTE | 2020-05-14 04:13 | Operative Report ---
Operative Report Operative Report: Date of procedure: May 14, 2020 Preoperative diagnosis: 1) IUP at 35w4d 2) Nonreassuring tracing, repe titive deep variable decels to 60 3) Chronic Hypertension with Superimposed Preeclampsia 4) Morbid Obesity BMI 47 Postoperative diagnosis: Same 5) Uterine Atony Procedure: Primary low transverse section Surgeon: Kiah Jauregui M.D. Anesthesia: Regional Findings: 1) Viable female , Apgars 7 and 9, weight 2330 g, (5 lb 2 oz) in cephalic presentation. Nuchal cord x 2 2) Normal-appearing uterus ovaries and tubes Estimated blood loss: 1000 mL IV fluids: 1000 mL Urine output: 50 mL, clear at the end of the procedure Drains: Linder to gravity Specimens: Placenta to pathology Complications:None. Counts correct x 3 Disposition: Stable to PACU Indication for procedure: Pt is a 34 year old at 35w4d who was undergoing induction of labor for chronic hypertension with superimposed preeclampsia. She progressed to 7 cm but began to have repetitive deep variable decelerations to 60s. The decision was made to proceed with section. Operation in detail: After the risks, benefits, alternatives and complications were explained to the patient she gave informed consent for the procedure. She was subsequently taken to the operating room where regional anesthesia was noted to be adequate. She was subsequently placed in the dorsal supine position with leftward tilt and prepped and draped in a normal sterile fashion. heart tones were noted prior to incision. A timeout was performed. A Pfannenstiel skin incision was made with the knife and carried down to the layer of the fascia with the Bovie. The fascia was incised in the midline and the fascial incision was extended bilaterally with the Bovie. The fascial incision was then stretched. The rectus muscles were then in the midline and partially transected for adequate visualization. The peritoneum was then entered bluntly. The peritoneal incision was extended with good visualization of the bladder. The peritoneal incision was then stretched. An Waqas retractor was placed. The bladder blade was then placed. The vesicouterine peritoneum was grasped with smooth pick ups and incised with Metzenbaum scissors. A bladder flap was then created digitally and the bladder blade was replaced. A transverse incision was made in the lower uterine segment with a knife and extended bilaterally with the bandage scissors. head delivered with ease, nuchal cord x 2 was reduced, followed by delivery of shoulders and body. bulb suctioned at delivery. Cord clamped and cut. handed to NICU staff in attendance. Cord blood was collected. The placenta was then delivered manually. The uterus was then cleared of all clots and debris. The hysterotomy was then reapproximated with 0 Vicryl in a running locked fashion. A second layer of the same suture was used in imbricating fashion. Additional figure of eights of 2-0 Vicryl were placed at the left edge of the hysterotomy for hemostasis. The hysterotomy was inspected and hemostasis was noted. The gutters were irrigated and cleared of all clots and debris. Surgicel was placed over the hysterotomy. The Waqas retractor was removed. The peritoneum was reapproximated with 2-0 Vicryl in a running fashion incorporating the rectus muscles. Surgicel was placed over the rectus muscles. The fascia was reapproximated with 0 Vicryl in a running fashion. The subcutaneous tissue was reapproximated with 3-0 Vicryl in a running fashion. The skin was reapproximated with maricruz. The incision was then covered with a pressure dressing. The procedure was then ended. The patient tolerated the procedure well and was taken to the PACU in stable condition. All instrument, lap, and needle counts were correct 3. Misoprostol 800 mcg was placed per rectum at the end of the case.
[2020-05-14] MEDS ORDERED: WITCH HAZEL/ GLYCERIN PAD TP PRN (04:21)
[2020-05-14] MEDS ORDERED: MORPHINE 4 MG/1 ML INJ IV PRN (04:21)
[2020-05-14] MEDS ORDERED: LANOLIN/ZINC/DIMETHICONE (LANSINOH) 7 GM TP PRN (04:21)
[2020-05-14] MEDS ORDERED: SIMETHICONE 80 MG CHEW TAB PO PRN (04:21)
[2020-05-14] MEDS ORDERED: NALOXONE 0.4 MG/1 ML INJ IV PRN ×2 (04:21→04:22)
[2020-05-14] MEDS ORDERED: IBUPROFEN 800 MG TAB PO PRN (04:21)
[2020-05-14] MEDS ORDERED: MORPHINE 2 MG/1 ML INJ IV PRN (04:21)
[2020-05-14] MEDS ORDERED: ONDANSETRON 4 MG/2 ML INJ IV PRN (04:22)
[2020-05-14] MEDS ORDERED: HYDROmorphone 1 MG/1 ML INJ IV PRN (04:22)
[2020-05-14] MEDS ORDERED: AMMONIA INHALANT IH ONE (04:55)
[2020-05-14] MEDS ORDERED: CARBOPROST TROMETHAMINE 250 MCG/1 ML INJ IM ONE (04:59)
[2020-05-14] MEDS ORDERED: KETOROLAC 30 MG/1 ML INJ IV SCH (05:00)
[2020-05-14] MEDS ORDERED: OXYTOCIN DRIP 30 UNITS/500 ML BAG IV SCH (05:00)
[2020-05-14] MEDS ORDERED: SODIUM CHLORIDE 0.9% 500 ML 500 ML IV ONE (05:01)
[2020-05-14] MEDS ORDERED: SODIUM CHLORIDE 0.9% 1000 ML 1,000 ML ONE (05:18)
[2020-05-14 05:40] LABS: Hematocrit 20.3 % (30.3-42.9); Hemoglobin 7.2 gm/dl (10.1-14.3); Mean Corpuscular HGB Conc 36 % (30-34); Mean Corpuscular Volume 88 fl (79-97); Platelet Count 199 K/mm3 (140-440); Red Cell Distribution Width 13.8 % (13.2-15.2)
[2020-05-14] MEDS ORDERED: propofoL 200 MG/20 ML VIAL IV ONE (05:47)
[2020-05-14] MEDS ORDERED: ROCURONIUM 50 MG/5 ML INJ IV ONE ×2 (05:49→07:31)
[2020-05-14 05:57] LABS: Alanine Aminotransferase 27 units/L (7-56)
[2020-05-14 05:58] LABS: INR 1.04 (0.87-1.13); Partial Thromboplastin Time 28.6 Sec. (24.2-36.6)
--- NOTE | 2020-05-14 06:03 | Event Note ---
Date: 05/14/20 This is a 34 year old at 35w4d with s/p earlier this morning. Per medical record went well. Patient started bleeding profusely via vagina. Code MET called -patient continued to bleed nonstop. Dr. Jauregui the full time staff interpreter surgeon was present. Patient started on blood transfusion and iv hydration-however Patient continue to bleed. Decision was made to take patient to surgery for possible hysterectomy. Patient is taken to surgery.
[2020-05-14] MEDS ORDERED: MIDAZOLAM 2 MG/2 ML INJ ONE ×2 (06:05→06:06)
[2020-05-14] MEDS ORDERED: fentaNYL 250 MCG/5 ML INJ ONE (06:08)
[2020-05-14] MEDS ORDERED: PHENYLEPHRINE 10 MG/1 ML INJ SDV ONE ×2 (06:27→06:37)
[2020-05-14] MEDS ORDERED: PHENYLEPHRINE/NS 1,000 MCG/10 ML SYRINGE (OR USE) IV ONE ×3 (06:27→08:10)
[2020-05-14] MEDS ORDERED: dexAMETHasone 20 MG/5 ML VIAL ONE (06:39)
[2020-05-14] MEDS ORDERED: SODIUM CHLORIDE 0.9% 500 ML 500 ML ONE (06:41)
[2020-05-14] MEDS ORDERED: SODIUM CHLORIDE 0.9% 500 ML 500 ML IV NR ×3 (07:08→08:45)
[2020-05-14 07:42] LABS: Uric Acid 2.3 mg/dL (3.5-7.6)
[2020-05-14] MEDS ORDERED: GLYCOPYRROLATE 0.4 MG/2 ML INJ ONE (08:58)
[2020-05-14] MEDS ORDERED: NEOSTIGMINE 10MG/10 ML INJ MDV ONE (08:58)
[2020-05-14] MEDS ORDERED: PHENYLEPHRINE 100 MG in SODIUM CHLORIDE 0.9% 90 ML IV SCH (09:30)
[2020-05-14] MEDS ORDERED: ceFAZolin/NS 1 GM/50 ML 1 GM/50 ML BAG IV SCH (10:00)
--- NOTE | 2020-05-14 10:26 | Post Operative Note ---
Pre-op diagnosis: s/p section, uterine atony, morbid obesity, acute blood loss anemi Post-op diagnosis: same Findings: 1) Atonic uterus Procedure: Supracervical abdominal hysterectomy Anesthesia: UMBERTO Surgeon: DOMINGO CORONEL Medical Administrative Technician: MARK PRICE Estimated blood loss: other (2000 mL) Pathology: list (uterus) Specimen disposition: to lab Condition: stable Disposition: ICU
--- NOTE | 2020-05-14 10:26 | Operative Report ---
Operative Report Operative Report: Date of procedure: May 14, 2020 Preoperative Diagnosis: 1) s/p primary section secondary to nonreas suring status, Chronic Hypertension with superimposed Preeclampsia 2) Uterine Atony 3) Hemorrhage 4) Acute Blood Loss Anemia 5) Morbid Obesity Postoperative diagnosis: Same Procedure: Supracervical abdominal hysterectomy Surgeon: Kiah Jauregui M.D. Assistants: Savi Jones M.D.; Josee Simon CNM Anesthesia: General endotracheal anesthesia Findings: 1) ~20 wk sized uterus 2) Normal appearing ovaries and fallopian tubes Estimated blood loss: 2000 mL during the surgery, estimated 5000 mL in the PACU after section Infusions: Four units PRBCs and one unit fresh frozen plasma Urine: Clear at the end of procedure Drains: Linder to gravity Specimens: Uterus to pathology Complications: None. Counts correct 3 Disposition: Critical to CCU Indication for procedure: Patient is a 34 year old -[place] s/p primary section at 35 wks secondary to nonreassuring status and chronic hypertension with superimposed preeclampsia complicated by uterine atony despite administration of multiple uterotonic medications and hemorrhage. Consideration was given to uterine artery embolization but given the urgent need for definitive management the decision was made to proceed with hysterectomy. Operation in detail: The patient was placed in the dorsal supine position. The patient was prepped and draped in a normal sterile fashion. A time out was performed. General endotracheal anesthesia was induced without difficulty. The maricruz from the previously created Pfannenstiel incision were removed. The suture reapproxi mating the subcutaneous tissue was excised. The suture reapproximating the fascial incision was also excised. The suture reapproximating the rectus muscles and perintoneal incision were excised. At this time, the uterus was delivered through the incision. The anterior leaf of the broad ligament on the right side was sequentially clamped, cut and suture ligated with 0 Vicryl working toward the midline of the vesicouterine peritoneum. The bladder was dissected off the lower uterine segment and cervix with the Metzenbaum scissors and a moist sponge stick. A window was created in an avascular area of the posterior leaf. The right ovarian ligament and fallopian tube were sequentially clamped, cut and doubly suture ligated with 0 Vicryl. Attention was then turned to the left side where the round ligament was identified and suture ligated with 0 Vicryl. Again the anterior leaf of the broad ligament was dissected to the midline of the vesicouterine peritoneum. The left ovarian ligament and fallopian tube were sequentially clamped, cut and doubly suture ligated with 0 Vicryl. The uterine vessels were skeletonized, doubly clamped and suture ligated with 0 Vicryl. The uterus was amputated with the Bovie and sent to pathology. An O'Cristian-O Villarreal retractor was then placed. The cut edges of the cervix were reapproximated with figure of eights of 0 Vicryl. Figure of eights of 3-0 Vicryl were used for to obtain hemostasis of the mesosalpinx. The pelvis was then irrigated and cleared of all clots and debris. Surgicel was placed over the cervix and pedicles. All laps and instruments were removed from the abdomen. Hemostasis was noted. The peritoneum was reapproximated with 2-0 Vicryl in a running fashion. The fascia was then reapproximated with 0 Vicryl in a running fashion. The subcutaneous tissue was reapproximated with 3-0 Vicryl in a running fashion. The skin was reapproximated with maricruz. The incision was then covered with a pressure dressing. The procedure was then ended. All instrument, lap, and needle counts were correct 3. The patient was extubated after the procedure and taken to the critical care unit for continuation of her care.
[2020-05-14 11:04] LABS: Hematocrit 23.1 % (30.3-42.9); Hemoglobin 7.9 gm/dl (10.1-14.3); Mean Corpuscular HGB Conc 34 % (30-34); Mean Corpuscular Volume 87 fl (79-97); Platelet Count 95 K/mm3 (140-440); Red Blood Count 2.66 M/mm3 (3.65-5.03); Red Cell Distribution Width 13.8 % (13.2-15.2)
[2020-05-14 11:14] LABS: INR 1.23 (0.87-1.13)
[2020-05-14 11:15] LABS: Partial Thromboplastin Time 25.3 Sec. (24.2-36.6)
[2020-05-14 11:19] LABS: Alanine Aminotransferase 19 units/L (7-56); Albumin 1.9 g/dL (3.9-5); BUN/Creatinine Ratio 8; Blood Urea Nitrogen 6 mg/dL (7-17); Hemolysis Index 6
[2020-05-14 11:34] LABS: Calcium 5.9 mg/dL (8.4-10.2)
[2020-05-14] MEDS: LACTATED RINGERS 1,000 ML IV SCH (12:00)
--- NOTE | 2020-05-14 12:10 | Consultation ---
History of Present Illness Consult date: 05/14/20 Requesting physician: DOMINGO CORONEL Reason for consult: other (ABLA; Post Hemorrhage; Hemorhagic Shock) History of present illness: PULMONARY/CCM CONSULT NOTE (Full dictation # [id number]) Please see dictated notes for full details Past History Social history: single Medications and Allergies Allergies Allergy/AdvReac Type Severity Reaction Status Date / Time No Known Allergies Allergy Unverified 05/11/20 13:53 Home Medications Medication Instructions Recorded Confirmed Last Taken Type Pnv Plus Multivit Tab 1 tab PO DAILY 05/12/20 05/12/20 05/10/20 History labetaloL [Labetalol 200mg TAB] 1 tab PO BID 05/12/20 05/12/20 05/11/20 History Active Meds: Active Medications Acetaminophen (Acetaminophen 500 Mg Tab) 1,000 mg PO Q6H PRN PRN Reason: Pain, Mild (1-3) Last Admin: 05/13/20 07:35 Dose: 1,000 mg Documented by: Butorphanol Tartrate (Butorphanol 2 Mg/1 Ml Inj) 2 mg IV Q2H PRN PRN Reason: Pain , Severe (7-10) Butorphanol Tartrate (Butorphanol 2 Mg/1 Ml Inj) 1 mg IV Q2H PRN PRN Reason: Labor Pain Cefazolin Sodium (Cefazolin/Sterile Water 2 Gm/20 Ml Syringe) 2 gm IV PREOP NR Stop: 05/14/20 23:45 Diphenhydramine HCl (Diphenhydramine 50 Mg/Ml Vial) 25 mg IV Q6H PRN PRN Reason: Itching Last Admin: 05/13/20 00:05 Dose: 25 mg Documented by: Diphtheria/Tetanus/Acell Pertussis (Diphtheria,Pertussis(Acell),Tetanus Vaccine/Pf 0.5 Ml Vial) 0.5 ml IM .ONCE ONE Stop: 05/15/20 06:01 Ephedrine Sulfate (Ephedrine Sulfate 50 Mg/1 Ml Inj) 10 mg IV Q2M PRN PRN Reason: Hypotension Last Admin: 05/14/20 02:01 Dose: 10 mg Documented by: Famotidine (Famotidine 20 Mg/2 Ml Inj) 20 mg IV PREOP NR Stop: 05/14/20 23:45 Fentanyl (Fentanyl 100 Mcg/2 Ml Inj) 100 mcg IV Q2H PRN PRN Reason: Pain,Severe (7-10) LABOR PAIN Last Admin: 05/13/20 22:45 Dose: 100 mcg Documented by: Hydralazine HCl (Hydralazine 20 Mg/1 Ml Inj) 5 mg IV Q30MIN PRN PRN Reason: Blood Pressure Last Admin: 05/13/20 03:49 Dose: 5 mg Documented by: Lactated Ringer's (Lactated Ringers) 1,000 mls @ 125 mls/hr IV DIRECT OLEKSANDR Last Infusion: 05/11/20 17:45 Dose: 75 mls/hr Documented by: Magnesium Sulfate (Magnesium Sulfate 40gm/1000ml) 40 gm in 1,000 mls @ 50 mls/hr IV DIRECT OLEKSANDR Last Admin: 05/13/20 19:37 Dose: 2 gm/hr, 50 mls/hr Documented by: Oxytocin/Sodium Chloride (Pitocin/Ns 30 Unit/500ml) 30 units in 500 mls @ 40 mls/hr IV TITR OLEKSANDR; Protocol Cefazolin Sodium (Ancef/Ns 1 Gm/50 Ml) 1 gm in 50 mls @ 100 mls/hr IV Q8H OLEKSANDR Stop: 05/14/20 18:29 Sodium Chloride (Nacl 0.9% 500 Ml) 500 mls @ 0 mls/hr IV ONCE NR Stop: 05/14/20 20:00 Sodium Chloride (Nacl 0.9% 500 Ml) 500 mls @ 0 mls/hr IV ONCE NR Stop: 05/14/20 18:00 Phenylephrine HCl 100 mg/ (Sodium Chloride) 100 mls @ 3 mls/hr IV TITR OLEKSANDR; Protocol Ibuprofen (Ibuprofen 800 Mg Tab) 800 mg PO Q6H PRN PRN Reason: Pain, Mild (1-3) Labetalol HCl (Labetalol 200 Mg Tab) 200 mg PO BID OLEKSANDR Last Admin: 05/13/20 21:53 Dose: 200 mg Documented by: Labetalol HCl (Labetalol 100 Mg Tab) 100 mg PO BID OLEKSANDR Last Admin: 05/13/20 21:53 Dose: 100 mg Documented by: Magnesium Hydroxide (Magnesium Hydroxide (Mom) Oral Liqd Udc) 30 ml PO QHS PRN PRN Reason: Constip Unrelieved By Senna Measles/Mumps/Rubella Vaccine Live (Measles, Mumps & Rubella 12,500 Unit/0.5 Ml Vaccine) 0.5 ml SUB-Q .ONCE ONE Stop: 05/15/20 06:01 Metoclopramide HCl (Metoclopramide 10 Mg/2 Ml Inj) 10 mg IV PREOP NR Stop: 05/14/20 23:45 Mineral Oil (Mineral Oil 30 Ml Oral Liqd) 30 ml PO QHS PRN PRN Reason: Constipation Misoprostol (Misoprostol 200 Mcg Tab) 800 mcg CA ONCE PRN PRN Reason: Uterine Bleeding Morphine Sulfate (Morphine 2 Mg/1 Ml Inj) 2 mg IV Q4H PRN PRN Reason: Pain, Moderate (4-6) Morphine Sulfate (Morphine 4 Mg/1 Ml Inj) 4 mg IV Q4H PRN PRN Reason: Pain , Severe (7-10) Multi-Ingredient Ointment (Lanolin/Zinc/Dimethicone (Lansinoh) 7 Gm) 1 applic TP PRN PRN PRN Reason: dryness/cracking Multivitamins/Iron/Calcium ( Rfc88-Et Fumarate-Folic Acid Vit Tab) 1 each PO QDAY OLEKSANDR Naloxone HCl (Naloxone 0.4 Mg/1 Ml Inj) 0.1 mg IV Q2MIN PRN PRN Reason: Res Rate </= 8 or 02 SAT < 92% Naloxone HCl (Naloxone 0.4 Mg/1 Ml Inj) 0.2 mg IV Q2MIN PRN PRN Reason: Res Rate </= 8 or 02 SAT < 92% Ondansetron HCl (Ondansetron 4 Mg/2 Ml Inj) 4 mg IV Q8H PRN PRN Reason: Nausea And Vomiting Oxycodone/Acetaminophen (Oxycodone /Acetaminophen 5-325mg Tab) 2 tab PO Q4H PRN PRN Reason: Pain, Moderate (4-6) Oxytocin (Oxytocin 10 Unit/1 Ml Inj) 10 unit IM ONCE PRN PRN Reason: Uterine Bleeding Simethicone (Simethicone 80 Mg Chew Tab) 80 mg PO Q6H PRN PRN Reason: Gas pain Sodium Chloride (Sodium Chloride 0.9% 10 Ml Flush Syringe) 10 ml IV PRN NR Stop: 05/15/20 04:59 Terbutaline Sulfate (Terbutaline 1 Mg/1 Ml Inj) 0.25 mg SUB-Q ONCE PRN PRN Reason: Hyperstimulation/Hypertonicity Valacyclovir HCl (Valacyclovir 500 Mg Tab) 1,000 mg PO QDAY OLEKSANDR Last Admin: 05/13/20 12:01 Dose: 1,000 mg Documented by: Witch Kala/Glycerin (Witch Kala/ Glycerin Pad) 1 each TP PRN PRN PRN Reason: Hemorrhoids/cleansing/soothing Physical Examination Vital signs: Vital Signs Temp Resp 99.0 F 22 05/11/20 14:08 05/11/20 14:08 Results - Laboratory Findings CBC and BMP: 05/14/20 10:39 05/14/20 10:39 PT/INR, D-dimer PT 15.3 Sec. (12.2-14.9) H 05/14/20 10:39 INR 1.23 (0.87-1.13) H 05/14/20 10:39 Abnormal lab findings: Abnormal Labs 05/11/20 05/11/20 05/11/20 14:15 14:15 14:15 WBC RBC 3.44 L Hgb Hct 30.2 L MCHC 35 H Plt Count PT INR Sodium BUN Creatinine 0.4 L Glucose Uric Acid 2.3 L Calcium Magnesium Lactate Dehydrogenase 190 H Total Protein Albumin Ur Total Protein 24 Hr Urine Total Protein Membranes Rupture Crossmatch See Detail 05/12/20 05/12/20 05/12/20 00:29 05:44 14:23 WBC RBC Hgb Hct MCHC Plt Count PT INR Sodium BUN Creatinine Glucose Uric Acid Calcium Magnesium 4.10 H 4.40 H 4.50 H Lactate Dehydrogenase Total Protein Albumin Ur Total Protein 24 Hr Urine Total Protein Membranes Rupture Crossmatch 05/12/20 05/12/20 05/13/20 18:40 20:30 00:48 WBC RBC Hgb Hct MCHC Plt Count PT INR Sodium BUN Creatinine Glucose Uric Acid Calcium Magnesium 4.00 H 4.60 H Lactate Dehydrogenase Total Protein Albumin Ur Total Protein 24 Hr 2167.50 H Urine Total Protein 85 H Membranes Rupture Crossmatch 05/13/20 05/13/20 05/13/20 05:57 14:57 18:01 WBC RBC Hgb Hct MCHC Plt Count PT INR Sodium BUN Creatinine Glucose Uric Acid Calcium Magnesium 4.70 H 4.80 H Lactate Dehydrogenase Total Protein Albumin Ur Total Protein 24 Hr Urine Total Protein Membranes Rupture Positive A Crossmatch 05/13/20 05/14/20 05/14/20 18:42 00:14 04:57 WBC RBC Hgb Hct MCHC Plt Count PT INR Sodium BUN Creatinine 0.5 L Glucose Uric Acid 2.3 L Calcium Magnesium 4.60 H 4.70 H 4.50 H Lactate Dehydrogenase Total Protein Albumin Ur Total Protein 24 Hr Urine Total Protein Membranes Rupture Crossmatch 05/14/20 05/14/20 05/14/20 04:57 10:35 10:39 WBC 27.8 H RBC 2.30 L 2.66 L Hgb 7.2 L D 7.9 L Hct 20.3 L D 23.1 L MCHC 36 H Plt Count 95 L PT INR Sodium BUN Creatinine Glucose Uric Acid Calcium Magnesium Lactate Dehydrogenase Total Protein Albumin Ur Total Protein 24 Hr Urine Total Protein Membranes Rupture Crossmatch See Detail 05/14/20 05/14/20 10:39 10:39 WBC RBC Hgb Hct MCHC Plt Count PT 15.3 H INR 1.23 H Sodium 136 L BUN 6 L Creatinine Glucose 127 H Uric Acid Calcium 5.9 L* Magnesium Lactate Dehydrogenase Total Protein 3.1 L Albumin 1.9 L Ur Total Protein 24 Hr Urine Total Protein Membranes Rupture Crossmatch
--- NOTE | 2020-05-14 12:10 | Anesthesia Day of Surgery ---
Anesthesia Day of Surgery - Day of Surgery Patient Examined: Yes Patient H&P Reviewed: Yes Patient is NPO: Yes Beta Blockers: No Cardiac Clearance: No Pulmonary Clearance: No Kevin's Test: N/A
--- NOTE | 2020-05-14 13:34 | Consultation ---
PULMONARY CRITICAL CARE CONSULT NOTE CONSULTING PHYSICIAN: Dr. Kiah Jauregui REASON FOR CONSULTATION: Hemorrhagic shock, hemorrhage, possible need for massive transfusion. CHIEF COMPLAINT AND HISTORY OF PRESENT ILLNESS: The patient is a now 34-year-old female with a past medical history significant only as far as I can tell. According to the records for being obese and also with a history of tobacco abuse about 5-pack-year tobacco smoking history who apparently presented from the office to the hospital with headaches, blood pressure that was elevated. This was higher than her usual blood pressures. 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 She was evaluated. She was admitted to the hospital with preeclampsia, superimposed chronic hypertension. She was managed in the hospital wards for a while. On the , her urine protein was significantly elevated. Ultrasound showed that likely distress. A decision was made to proceed essentially with surgery after trying medical management. Early this morning, she had a section. A primary low transverse complicated by uterine atony, post delivery. She then developed hemorrhage. A code MET was called. She had to take the patient back into the OR for a hysterectomy due to an atonic uterine. She had a supracervical abdominal hysterectomy with an estimated blood loss of about 2 liters. Overall, perioperatively, she might have lost about 3 liters in all since she has been in the hospital, really greater than 4 liters. Postop, she was then found to be hypotensive and she was brought into the Intensive Care Unit. She has received I believe about 4 units of packed red cells and 2 units of FFPs according to the history that was given by the wood science professor. When I stopped by to see her, she was resting in bed. She was able to respond. 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 She denied any pain. She denied chest pain in particular, she denied fevers or chills. She gave me the tobacco smoking history. She denied any nausea. This really is as much of the history of presentation as I have. PAST MEDICAL HISTORY: Again, obesity, tobacco use disorder. PAST SURGICAL HISTORY: Now status post abdominal hysterectomy. MEDICATIONS: She was on at the time I stopped by to see her, according to the medication administration record included the following: Tylenol 1 gram p.o. q. 6 hours p.r.n. mild pain, Stadol 2 mg IV q. 12 hours p.r.n. severe pain, Ancef 2 grams IV was received preoperatively and she is on 1 gram IV q. 8 hours scheduled, Benadryl 25 mg IV q. 6 hours p.r.n. itching. She got a dose of DPTE immunization, ephedrine 10 mg IV q. 2 minutes p.r.n. hypotension, Pepcid 10 mg IV, preop. She received some fentanyl perioperatively, hydralazine 5 mg IV q. 30 minutes p.r.n. elevated blood pressure. She is on labetalol 200 mg p.o. b.i.d. and 100 p.o. b.i.d. scheduled for a total of 300 mg p.o. b.i.d., received lactated Ringer's at 75 mL per hour, received 2 grams per hour of magnesium sulfate. I believe prior to this operation, Reglan 10 mg IV, preop measles, mumps, rubella vaccination x 1. She received Cytotec 800 mcg per rectum once and then for p.r.n. uterine bleeding, morphine sulfate 2 mg IV q. 4 hours p.r.n. moderate pain, morphine sulfate 4 mg IV q. 4 hours p.r.n. severe pain, daily multivitamin, p.r.n. naloxone, Zofran 4 mg IV q. 8 hours p.r.n. nausea and vomiting, Percocet 5/325 two tablets p.o. q. 4 hours p.r.n. moderate pain, was on a Pitocin drip, Valtrex 1 gram p.o. daily. ALLERGIES: No known drug allergies. DIET: Obese lady. Denies acute weight loss or gain except those related to her . FAMILY AND SOCIAL HISTORY: Apparently lives in the community, has a 5+ pack year tobacco smoking history. Denies alcohol or illicit drug use or abuse. Family history is otherwise noncontributory. I should mention I also see a history of multiple sclerosis and a history of back pain. REVIEW OF SYSTEMS: No overt loss of consciousness. No new onset seizures. No new onset focal weakness. No gross hematochezia. She had a hemorrhage. No gross hematuria reported. No hematemesis. No hemoptysis. Denies chest pains. Denied heat or cold intolerance. Denies polydipsia or polyuria. Complete 13-system review of systems obtained as best as I could. Pertinent positives and/or negatives as in body of history above, otherwise noncontributory. PHYSICAL EXAMINATION: VITAL SIGNS: On examination at presentation over here, temperature 98.0 Fahrenheit with a pulse of 94, respiratory rate of 18 and blood pressure 101/72, O2 sats were 100% that was on 3 liters nasal cannula, blood pressure was as low as 91/47, but that was transiently actually went as low as 88/47, but transiently. Currently, her most recent blood pressure is 102/70 and she is getting a blood transfusion. GENERAL: She is a young, obese female, normocephalic, atraumatic, resting in bed, really with mildly increased respiratory effort at rest. HEAD, EYES, EARS, NOSE AND THROAT: Anicteric. No conjunctival erythema. Oropharynx was moist. She appears to have high Mallampati score, unable to examine adequately. She has a large neck circumference. No gross jugular venous distention, no thyromegaly. NECK: Grossly, there were no palpable lymph nodes in the supraclavicular or submandibular lymph node chains. LUNGS: Auscultation of both lung saxena unremarkable. Lungs were clear bilaterally with good bilateral air movement. HEART: Heart sounds 1 and 2 are heard, regular rate and rhythm at time of my evaluation. ABDOMEN: Soft, full, bowel sounds are positive. Tender in the perioperative areas. No palpable hepatosplenomegaly. EXTREMITIES: Without overt digital clubbing, no cyanosis, no pedal edema. Pedal pulses are 2+ bilaterally. NEUROLOGIC: Pupils are equal, round, reactive to light. Extraocular muscle movements are intact. She moves all 4 extremities spontaneously. SKIN: Normal turgor in the areas examined without overt cellulitis or rash. She has the postop changes. PSYCHIATRIC: Mood was normal. Affect was appropriate. She had intact judgment and insight. LABORATORY DATA: From my review are as follows: Admission white cell count was 8700 with hemoglobin of 10.6, hematocrit of 30.2 and platelet count of 252. Creatinine was 0.4 at presentation. LDH 190. AST and ALT within normal limits. Magnesium was elevated at 4.1. Urinalysis was negative for nitrites and leukocyte esterase. Coronavirus PCR test was negative. Most recent lab work: White count was 27,800; hemoglobin 7.9; hematocrit 23.1; platelet count of 95. INR 1.23. Serum sodium 136, potassium 4.1, chloride 107, bicarbonate 22, BUN 6, creatinine 0.8, glucose 127. Calcium was 5.9 at that time. I do not have any radiographic studies for review. It looks like she has had 2 packed red cells, fresh frozen plasma has been ordered, one has been transfused at the time of this lab. ASSESSMENT: 1. Hemorrhagic shock, resolving. 2. 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 3. Status post section. 4. Obesity. 5. History of preeclampsia. 6. Acute blood loss anemia. 7. Thrombocytopenia. 8. History of multiple sclerosis. PLAN: So far her blood pressure is doing much better in the last couple of hours. We will watch her closely. We will continue volume resuscitation with colloid in the form of her packed red cells and FFPs. Massive transfusion protocol will be followed as necessary. We will keep a close eye on her platelets. She will be watched overnight in the intensive care unit at least serial hematocrit and hemoglobin levels will be drawn. While awaiting on the current infusion to go through and then we will also draw another set of labs. Oxygen will be weaned to keep sats greater than or equal to about 90%. Aspiration precautions will be maintained. I will be started on GI prophylaxis as she says she received GI prophylaxis preoperatively, but I will start her on daily GI prophylaxis. DVT prophylaxis will be with SCDs. We will hold on heparinoids until we see what the platelet count is doing. I will defer to WORKFORCE CONSULTANT for further post-surgical management. Flu and pneumonia vaccination will be addressed per protocol. Thank you very much for the consult. We will follow along and make further recommendations as picture progresses/becomes clearer. She is critically ill on life-sustaining interventions, at very high risk of from hematologic, respiratory and cardiopulmonary system decompensation. At this time, I spent about 35 minutes of critical care time without overlap and excluding any procedural time that may be necessary. JOB# [id number] RENEE/MURALI ROJO
--- NOTE | 2020-05-14 19:20 | Post Anesthesia Evaluation ---
- Post Anesthesia Evaluation Patient Participated: Yes Airway Patent: Yes Stable Respiratory Function: Yes Nausea/Vomiting: No Temp > 96.8F: Yes Pain Manageable: Yes Adequeate Hydration: Yes Anesthesia Complications: No Block Receding Appropriately: Yes Patient on Ventilator: No
[2020-05-14 21:00] LABS: Hematocrit 24.4 % (30.3-42.9); Hemoglobin 8.3 gm/dl (10.1-14.3)
[2020-05-14] MEDS: ceFAZolin/NS 1 GM/50 ML 1 GM/50 ML BAG IV SCH (21:56)
[2020-05-15] MEDS: LACTATED RINGERS 1,000 ML IV SCH (00:32)
[2020-05-15] MEDS ORDERED: MAGNESIUM HYDROXIDE (MOM) ORAL LIQD UDC PO PRN (04:21)
[2020-05-15] MEDS: ceFAZolin/NS 1 GM/50 ML 1 GM/50 ML BAG IV SCH (05:22)
[2020-05-15 05:37] LABS: Hematocrit 20.8 % (30.3-42.9); Hemoglobin 7.2 gm/dl (10.1-14.3); Mean Corpuscular HGB Conc 35 % (30-34); Mean Corpuscular Volume 82 fl (79-97); Platelet Count 137 K/mm3 (140-440); Red Blood Count 2.54 M/mm3 (3.65-5.03); Red Cell Distribution Width 16.2 % (13.2-15.2)
[2020-05-15 05:41] LABS: INR 0.99 (0.87-1.13); Partial Thromboplastin Time 32.2 Sec. (24.2-36.6)
[2020-05-15 05:43] LABS: Basophils % (Auto) 0.2 % (0.0-1.8); Eosinophils % (Auto) 0.1 % (0.0-4.3); Lymphocytes # (Auto) 2.4 K/mm3 (1.2-5.4); Lymphocytes % (Auto) 11.6 % (13.4-35.0); Monocytes # (Auto) 2.1 K/mm3 (0.0-0.8); Monocytes % (Auto) 9.9 % (0.0-7.3)
[2020-05-15 05:45] LABS: Blood Urea Nitrogen 6 mg/dL (7-17); Hemolysis Index 5
[2020-05-15 06:00] LABS: BUN/Creatinine Ratio 12
[2020-05-15] MEDS ORDERED: DIPHtheria,PERTUSSIS(ACELL),TETANUS VACCINE/PF 0.5 ML VIAL IM ONE (06:00)
[2020-05-15] MEDS ORDERED: MEASLES, MUMPS & RUBELLA 12,500 UNIT/0.5 ML VACCINE SUB-Q ONE (06:00)
[2020-05-15] MEDS: hydrALAZINE 20 MG/1 ML INJ IV PRN (06:06)
[2020-05-15] MEDS: PRENATAL VIT27-FE FUMARATE-FOLIC ACID VIT TAB PO SCH (09:07)
[2020-05-15] MEDS: valACYclovir 500 MG TAB PO SCH (09:07)
[2020-05-15] MEDS ORDERED: FAMOTIDINE 20 MG/2 ML INJ IV SCH (10:00)
[2020-05-15] MEDS ORDERED: PNV PRENATAL PLUS MULTIVIT PO SCH (10:00)
[2020-05-15] MEDS: NIFEdipine XL 90 MG TAB PO SCH (11:09)
[2020-05-15] MEDS: oxyCODONE /ACETAMINOPHEN 5-325MG TAB PO PRN ×2 (11:14→20:46)
--- NOTE | 2020-05-15 12:22 | Progress Note ---
Assessment and Plan Hemorrhagic shock, resolving. 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 Status post section. Obesity. History of preeclampsia. Acute blood loss anemia. Thrombocytopenia. History of multiple sclerosis - prn supplemental oxygen to keep O2 sats > 90% - prn bronchodilators ([facility]) with pulm hygiene per RT - avoid nephrotoxins, renally dose all medications - mobility protocols to prevent pressure ulcers - PT/OT as tolerated - prn analgesia per pain score - Wound care per RN/WCT - accuchecks with glycemic control per SSI for target blood glucose < 180 mg/dL - Smoking cessation strongly counseled at the bedside - home oxygen evaluation at discharge - GI & VTE prophylaxis - Flu & pneumovax per protocol - continue other care per attending / other consultants .... 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 re-evaluate in am & prn Subjective Date of service: 05/15/20 Principal diagnosis: Hemorrhagic shock; PPH; s/p C/S; Obesity; ABLA; Thrombocytopenia; M.S. 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 Seen and examined at bedside; 24hour events reviewed; nursing and respiratory care staff consulted; no adverse overnight events reported to me; resting peacefully in bed; eating lunch; denies chest pain or SOB; on room air; no more bleeding Objective Vital Signs - 12hr 05/15/20 05/15/20 05/15/20 00:20 00:30 00:40 Temperature Pulse Rate 89 112 H 106 H Pulse Rate [ From Monitor] Respiratory 16 18 11 L Rate Blood Pressure 129/64 129/64 133/63 O2 Sat by Pulse 99 100 99 Oximetry 05/15/20 05/15/20 05/15/20 00:50 01:00 01:10 Temperature Pulse Rate 90 92 H 111 H Pulse Rate [ From Monitor] Respiratory 26 H 21 15 Rate Blood Pressure 133/70 133/70 139/61 O2 Sat by Pulse 100 99 99 Oximetry 05/15/20 05/15/20 05/15/20 01:20 01:30 01:40 Temperature Pulse Rate 111 H 108 H 93 H Pulse Rate [ From Monitor] Respiratory 25 H 15 21 Rate Blood Pressure 191/75 191/75 163/71 O2 Sat by Pulse 98 98 Oximetry 05/15/20 05/15/20 05/15/20 01:50 02:00 02:10 Temperature Pulse Rate 104 H 93 H 112 H Pulse Rate [ From Monitor] Respiratory 11 L 18 14 Rate Blood Pressure 163/71 163/71 163/71 O2 Sat by Pulse Oximetry 05/15/20 05/15/20 05/15/20 02:20 02:30 02:40 Temperature Pulse Rate 92 H 115 H 119 H Pulse Rate [ From Monitor] Respiratory 26 H 12 11 L Rate Blood Pressure 146/78 146/78 146/78 O2 Sat by Pulse 99 99 97 Oximetry 05/15/20 05/15/20 05/15/20 02:44 02:50 03:00 Temperature Pulse Rate 115 H 98 H Pulse Rate [ From Monitor] Respiratory 16 25 H 31 H Rate Blood Pressure 146/78 152/75 O2 Sat by Pulse 99 96 Oximetry 05/15/20 05/15/20 05/15/20 03:10 03:20 03:30 Temperature Pulse Rate 105 H 96 H 87 Pulse Rate [ From Monitor] Respiratory 21 24 18 Rate Blood Pressure 152/75 152/75 152/75 O2 Sat by Pulse 99 97 99 Oximetry 05/15/20 05/15/20 05/15/20 03:40 03:50 04:00 Temperature 98.9 F Pulse Rate 79 77 98 H Pulse Rate [ 80 From Monitor] Respiratory 20 20 22 Rate Blood Pressure 152/75 152/75 152/75 O2 Sat by Pulse 99 99 99 Oximetry 05/15/20 05/15/20 05/15/20 04:10 04:20 04:30 Temperature Pulse Rate 74 85 92 H Pulse Rate [ From Monitor] Respiratory 26 H 21 27 H Rate Blood Pressure 149/63 149/63 149/63 O2 Sat by Pulse 99 100 99 Oximetry 05/15/20 05/15/20 05/15/20 04:40 04:50 05:00 Temperature Pulse Rate 85 91 H 84 Pulse Rate [ From Monitor] Respiratory 26 H 18 22 Rate Blood Pressure 149/63 149/63 162/74 O2 Sat by Pulse 98 100 97 Oximetry 05/15/20 05/15/20 05/15/20 05:10 05:20 05:30 Temperature Pulse Rate 110 H 91 H 89 Pulse Rate [ From Monitor] Respiratory 10 L 12 23 Rate Blood Pressure 162/74 162/74 162/74 O2 Sat by Pulse 99 97 99 Oximetry 05/15/20 05/15/20 05/15/20 05:40 05:50 06:00 Temperature Pulse Rate 82 86 90 Pulse Rate [ From Monitor] Respiratory 28 H 24 28 H Rate Blood Pressure 162/74 162/74 162/74 O2 Sat by Pulse 99 98 99 Oximetry 05/15/20 05/15/20 05/15/20 06:06 06:10 06:20 Temperature Pulse Rate 91 H 93 H 87 Pulse Rate [ From Monitor] Respiratory 30 H 22 Rate Blood Pressure 162/74 160/70 160/70 O2 Sat by Pulse 100 99 Oximetry 05/15/20 05/15/20 05/15/20 06:30 06:40 06:50 Temperature Pulse Rate 88 89 96 H Pulse Rate [ From Monitor] Respiratory 26 H 18 22 Rate Blood Pressure 160/70 160/70 160/70 O2 Sat by Pulse 99 100 99 Oximetry 05/15/20 05/15/20 05/15/20 07:00 07:10 07:25 Temperature Pulse Rate 103 H 89 Pulse Rate [ From Monitor] Respiratory 26 H 26 H Rate Blood Pressure 160/70 150/64 O2 Sat by Pulse 99 99 99 Oximetry 05/15/20 05/15/20 08:00 09:00 Temperature 98.4 F Pulse Rate 98 H 102 H Pulse Rate [ From Monitor] Respiratory 11 L 16 Rate Blood Pressure 150/64 184/101 O2 Sat by Pulse 99 100 Oximetry Constitutional: no acute distress Eyes: non-icteric ENT: oropharynx moist Neck: supple, no lymphadenopathy, no JVD Effort: normal Ascultation: Bilateral: clear Percussion: Bilateral: not dull Cardiovascular: regular rate and rhythm Gastrointestinal: normoactive bowel sounds, soft, non-tender, non-distended (post abdomen) Integumentary: normal Extremities: no cyanosis, no edema, pulses normal, no ischemia or petechiae Neurologic: normal mental status, non-focal exam, pupils equal and round, motor strength normal and Psychiatric: mood appropriate, affect normal CBC and BMP: 05/15/20 04:49 05/15/20 04:49 ABG, PT/INR, D-dimer: PT/INR, D-dimer PT 12.9 Sec. (12.2-14.9) 05/15/20 04:49 INR 0.99 (0.87-1.13) 05/15/20 04:49 Abnormal lab findings: Abnormal Labs 05/11/20 05/11/20 05/11/20 14:15 14:15 14:15 WBC RBC 3.44 L Hgb Hct 30.2 L MCHC 35 H RDW Plt Count Lymph % (Auto) [place] % (Auto) [place] # (Auto) Seg Neutrophils % Seg Neutrophils # PT INR Sodium BUN Creatinine 0.4 L Glucose Uric Acid 2.3 L Calcium Magnesium Lactate Dehydrogenase 190 H Total Protein Albumin Ur Total Protein 24 Hr Urine Total Protein Membranes Rupture Crossmatch See Detail 05/12/20 05/12/20 05/12/20 00:29 05:44 14:23 WBC RBC Hgb Hct MCHC RDW Plt Count Lymph % (Auto) [place] % (Auto) [place] # (Auto) Seg Neutrophils % Seg Neutrophils # PT INR Sodium BUN Creatinine Glucose Uric Acid Calcium Magnesium 4.10 H 4.40 H 4.50 H Lactate Dehydrogenase Total Protein Albumin Ur Total Protein 24 Hr Urine Total Protein Membranes Rupture Crossmatch 05/12/20 05/12/20 05/13/20 18:40 20:30 00:48 WBC RBC Hgb Hct MCHC RDW Plt Count Lymph % (Auto) [place] % (Auto) [place] # (Auto) Seg Neutrophils % Seg Neutrophils # PT INR Sodium BUN Creatinine Glucose Uric Acid Calcium Magnesium 4.00 H 4.60 H Lactate Dehydrogenase Total Protein Albumin Ur Total Protein 24 Hr 2167.50 H Urine Total Protein 85 H Membranes Rupture Crossmatch 05/13/20 05/13/20 05/13/20 05:57 14:57 18:01 WBC RBC Hgb Hct MCHC RDW Plt Count Lymph % (Auto) [place] % (Auto) [place] # (Auto) Seg Neutrophils % Seg Neutrophils # PT INR Sodium BUN Creatinine Glucose Uric Acid Calcium Magnesium 4.70 H 4.80 H Lactate Dehydrogenase Total Protein Albumin Ur Total Protein 24 Hr Urine Total Protein Membranes Rupture Positive A Crossmatch 05/13/20 05/14/20 05/14/20 18:42 00:14 04:57 WBC RBC Hgb Hct MCHC RDW Plt Count Lymph % (Auto) [place] % (Auto) [place] # (Auto) Seg Neutrophils % Seg Neutrophils # PT INR Sodium BUN Creatinine 0.5 L Glucose Uric Acid 2.3 L Calcium Magnesium 4.60 H 4.70 H 4.50 H Lactate Dehydrogenase Total Protein Albumin Ur Total Protein 24 Hr Urine Total Protein Membranes Rupture Crossmatch 05/14/20 05/14/20 05/14/20 04:57 10:35 10:39 WBC 27.8 H RBC 2.30 L 2.66 L Hgb 7.2 L D 7.9 L Hct 20.3 L D 23.1 L MCHC 36 H RDW Plt Count 95 L Lymph % (Auto) [place] % (Auto) [place] # (Auto) Seg Neutrophils % Seg Neutrophils # PT INR Sodium BUN Creatinine Glucose Uric Acid Calcium Magnesium Lactate Dehydrogenase Total Protein Albumin Ur Total Protein 24 Hr Urine Total Protein Membranes Rupture Crossmatch See Detail 05/14/20 05/14/20 05/14/20 10:39 10:39 20:18 WBC RBC Hgb 8.3 L Hct 24.4 L MCHC RDW Plt Count Lymph % (Auto) [place] % (Auto) [place] # (Auto) Seg Neutrophils % Seg Neutrophils # PT 15.3 H INR 1.23 H Sodium 136 L BUN 6 L Creatinine Glucose 127 H Uric Acid Calcium 5.9 L* Magnesium Lactate Dehydrogenase Total Protein 3.1 L Albumin 1.9 L Ur Total Protein 24 Hr Urine Total Protein Membranes Rupture Crossmatch 05/15/20 05/15/20 04:49 04:49 WBC 20.7 H RBC 2.54 L Hgb 7.2 L Hct 20.8 L MCHC 35 H RDW 16.2 H Plt Count 137 L Lymph % (Auto) 11.[address] [place] % (Auto) 9.[address] # (Auto) 2.1 H Seg Neutrophils % 78.2 H Seg Neutrophils # 16.2 H PT INR Sodium BUN 6 L Creatinine 0.5 L Glucose Uric Acid Calcium 7.0 L D Magnesium Lactate Dehydrogenase Total Protein Albumin Ur Total Protein 24 Hr Urine Total Protein Membranes Rupture Crossmatch Allied health notes reviewed: nursing
--- NOTE | 2020-05-15 13:33 | Progress Note ---
Assessment and Plan POD 1 s/p ltcs and GREGORIA. Pt continues to have elevated BP on current regimen. Will add Procardia 90mg bid to regimen to help with blood pressure control. If blood pressure stabilizes, will proceed with transfer to [facility] this afternoon. Pt may also have regular diet. Subjective - Subjective Date of service: 05/15/20 Principal diagnosis: Hemorrhagic shock; PPH; s/p C/S; Obesity; ABLA; Thrombocytopenia; M.S. Interval history: Pt is a 34 year old G32 who is now s/p primary ltcs for nrfht and gregoria for hemorrhage. Pt is doing well. She is tolerating po, has good flatus. Pt continues to have elevated bp however. She has adequate pain control. Patient reports: appetite normal, voiding normally, pain well controlled, ambulating normally [place]: doing well Objective - Vital Signs Latest vital signs: Vital Signs Temp Pulse Pulse Resp BP Pulse Ox 05/15/20 13:00 67 15 147/68 100 05/15/20 12:00 98.0 F 97 H 18 136/80 99 05/15/20 11:00 99 H 13 136/80 99 05/15/20 10:00 96 H 20 161/86 100 05/15/20 09:00 102 H 16 184/101 100 05/15/20 08:00 98.4 F 98 H 11 L 150/64 99 05/15/20 07:25 99 05/15/20 07:10 89 26 H 150/64 99 05/15/20 07:00 103 H 26 H 160/70 99 05/15/20 06:50 96 H 22 160/70 99 05/15/20 06:40 89 18 160/70 100 05/15/20 06:30 88 26 H 160/70 99 05/15/20 06:20 87 22 160/70 99 05/15/20 06:10 93 H 30 H 160/70 100 05/15/20 06:06 91 H 162/74 05/15/20 06:00 90 28 H 162/74 99 05/15/20 05:50 86 24 162/74 98 05/15/20 05:40 82 28 H 162/74 99 05/15/20 05:30 89 23 162/74 99 05/15/20 05:20 91 H 12 162/74 97 05/15/20 05:10 110 H 10 L 162/74 99 05/15/20 05:00 84 22 162/74 97 05/15/20 04:50 91 H 18 149/63 100 05/15/20 04:40 85 26 H 149/63 98 05/15/20 04:30 92 H 27 H 149/63 99 05/15/20 04:20 85 21 149/63 100 05/15/20 04:10 74 26 H 149/63 99 05/15/20 04:00 98.9 F 98 H 80 22 152/75 99 05/15/20 03:50 77 20 152/75 99 05/15/20 03:40 79 20 152/75 99 05/15/20 03:30 87 18 152/75 99 05/15/20 03:20 96 H 24 152/75 97 05/15/20 03:10 105 H 21 152/75 99 05/15/20 03:00 98 H 31 H 152/75 96 05/15/20 02:50 115 H 25 H 146/78 99 05/15/20 02:44 16 05/15/20 02:40 119 H 11 L 146/78 97 05/15/20 02:30 115 H 12 146/78 99 05/15/20 02:20 92 H 26 H 146/78 99 05/15/20 02:10 112 H 14 163/71 05/15/20 02:00 93 H 18 163/71 05/15/20 01:50 104 H 11 L 163/71 05/15/20 01:40 93 H 21 163/71 05/15/20 01:30 108 H 15 191/75 98 05/15/20 01:20 111 H 25 H 191/75 98 05/15/20 01:10 111 H 15 139/61 99 05/15/20 01:00 92 H 21 133/70 99 05/15/20 00:50 90 26 H 133/70 100 05/15/20 00:40 106 H 11 L 133/63 99 05/15/20 00:30 112 H 18 129/64 100 05/15/20 00:20 89 16 129/64 99 05/15/20 00:10 102 H 24 135/62 98 05/15/20 00:00 98.9 F 95 H 95 H 22 160/67 98 05/14/20 23:50 118 H 14 160/67 99 05/14/20 23:40 91 H 15 157/61 97 05/14/20 23:30 114 H 19 140/83 99 05/14/20 23:20 97 H 12 140/83 98 05/14/20 23:10 95 H 22 143/72 98 05/14/20 23:00 98 H 17 143/72 100 05/14/20 22:50 81 14 143/72 100 05/14/20 22:40 92 H 19 159/83 98 05/14/20 22:30 101 H 20 159/83 98 05/14/20 22:25 20 05/14/20 22:20 111 H 12 147/90 98 05/14/20 22:10 106 H 24 143/77 100 05/14/20 22:00 109 H 24 149/86 100 05/14/20 21:50 128 H 21 154/58 99 05/14/20 21:40 90 17 143/77 98 05/14/20 21:30 88 14 143/77 99 05/14/20 21:20 78 9 L 149/81 100 05/14/20 21:10 89 15 156/91 99 05/14/20 21:02 87 13 156/91 98 05/14/20 21:00 99 H 19 156/91 98 05/14/20 20:50 98 H 17 162/81 96 05/14/20 20:40 107 H 14 152/80 98 05/14/20 20:30 95 H 15 183/93 100 05/14/20 20:20 101 H 12 183/93 99 05/14/20 20:10 95 H 37 H 190/88 98 05/14/20 20:00 99.3 F 100 H 86 24 169/80 99 05/14/20 19:50 101 H 15 169/80 100 05/14/20 19:40 94 H 17 165/90 100 05/14/20 19:30 98 H 25 H 165/90 99 05/14/20 19:20 110 H 12 165/90 100 05/14/20 19:10 93 H 20 164/88 99 05/14/20 19:00 75 26 H 161/92 98 05/14/20 18:50 86 19 161/92 98 05/14/20 18:40 88 15 160/83 100 05/14/20 18:30 82 28 H 160/83 98 05/14/20 18:20 96 H 13 159/80 99 05/14/20 18:10 98 H 9 L 100 05/14/20 18:00 84 6 L 145/78 100 05/14/20 17:50 84 13 145/78 100 05/14/20 17:40 79 26 H 134/65 99 05/14/20 17:30 87 30 H 146/63 100 05/14/20 17:20 93 H 14 146/63 99 05/14/20 17:10 95 H 13 138/81 100 05/14/20 17:00 91 H 14 136/80 100 05/14/20 16:50 86 29 H 136/80 99 05/14/20 16:40 87 10 L 127/78 99 05/14/20 16:30 96 H 14 115/71 99 05/14/20 16:20 92 H 22 139/70 100 05/14/20 16:18 98.4 F 05/14/20 16:10 75 9 L 130/67 100 05/14/20 16:00 78 78 11 L 115/71 94 05/14/20 15:50 75 23 115/71 89 05/14/20 15:40 94 H 8 L 142/50 95 05/14/20 15:30 67 12 95/68 97 05/14/20 15:20 81 10 L 95/68 100 05/14/20 15:10 82 26 H 111/69 99 05/14/20 15:00 94 H 11 L 118/61 100 05/14/20 14:50 92 H 21 118/61 99 05/14/20 14:40 80 13 116/64 100 05/14/20 14:30 90 19 116/62 100 05/14/20 14:20 77 22 116/62 100 05/14/20 14:10 82 11 L 120/77 99 05/14/20 14:00 118 H 12 130/88 100 05/14/20 13:50 92 H 19 130/88 100 05/14/20 13:40 121 H 16 118/84 99 05/14/20 13:30 83 17 118/84 100 Intake and Output 05/14/20 05/15/20 05/15/20 22:59 06:59 14:59 Intake Total 1020 1160 0 Output Total 650 1400 Balance 370 -240 0 Intake: IV 50 940 ANCEF/NS 1 GM/50 ML 1 gm 50 In 50 ml @ 100 mls/hr IV Q8H [facility] Rx#:[id number] Lactated Ringers 1,000 ml 940 @ 125 mls/hr IV DIRECT [facility] Rx#:[id number] Oral 720 220 0 Blood Product 250 Leukoreduced Red Blood 250 Cells Unit [id number] Output: Urine 650 1400 Indwelling Catheter 650 1400 Other: Total, Intake Amount 240 0 0 Total, Output Amount 100 600 Voiding Method Indwelling Catheter Indwelling Catheter - Exam Breasts: Present: deferred Lungs: Present: Clear to auscultation Abdomen: Present: normal appearance, soft, normal bowel sounds Uterus: Present: other (absent) Extremities: Present: normal Incision: Present: normal, dry, intact - Labs Labs: Abnormal lab results 05/11/20 05/14/20 05/14/20 Range/Units 14:15 10:35 20:18 WBC (4.5-11.0) K/mm3 RBC (3.65-5.03) M/mm3 Hgb 8.3 L (10.1-14.3) gm/dl Hct 24.4 L (30.3-42.9) % MCHC (30-34) % RDW (13.2-15.2) % Plt Count (140-440) K/mm3 Lymph % (Auto) (13.4-35.0) % [place] % (Auto) (0.0-7.3) % [place] # (Auto) (0.0-0.8) K/mm3 Seg Neutrophils % (40.0-70.0) % Seg Neutrophils # (1.8-7.7) K/mm3 BUN (7-17) mg/dL Creatinine (0.6-1.2) mg/dL Calcium (8.4-10.2) mg/dL Crossmatch See Detail See Detail 05/15/20 05/15/20 Range/Units 04:49 04:49 WBC 20.7 H (4.5-11.0) K/mm3 RBC 2.54 L (3.65-5.03) M/mm3 Hgb 7.2 L (10.1-14.3) gm/dl Hct 20.8 L (30.3-42.9) % MCHC 35 H (30-34) % RDW 16.2 H (13.2-15.2) % Plt Count 137 L (140-440) K/mm3 Lymph % (Auto) 11.6 L (13.4-35.0) % [place] % (Auto) 9.9 H (0.0-7.3) % [place] # (Auto) 2.1 H (0.0-0.8) K/mm3 Seg Neutrophils % 78.2 H (40.0-70.0) % Seg Neutrophils # 16.2 H (1.8-7.7) K/mm3 BUN 6 L (7-17) mg/dL Creatinine 0.5 L (0.6-1.2) mg/dL Calcium 7.0 L D (8.4-10.2) mg/dL Crossmatch
--- NOTE | 2020-05-15 13:38 | Event Note ---
Date: 05/15/20 Spoke with nursing staff and informed that blood pressure is now significantly lower since receiving second med. 130-140/80-90. Pt is doing well. WIll proceed with transfer out of ICU to post floor.
[2020-05-15] MEDS ORDERED: NALOXONE 0.4 MG/1 ML INJ IV PRN (16:30)
[2020-05-15] MEDS ORDERED: LANOLIN/ZINC/DIMETHICONE (LANSINOH) 7 GM TP PRN (16:30)
[2020-05-15] MEDS ORDERED: WITCH HAZEL/ GLYCERIN PAD TP PRN (16:30)
[2020-05-15] MEDS: HEPARIN 5,000 UNIT/1 ML VIAL SUB-Q SCH (17:53)
[2020-05-16] MEDS: NIFEdipine XL 90 MG TAB PO SCH ×3 (00:20→21:36)
[2020-05-16] MEDS: hydrALAZINE 20 MG/1 ML INJ IV PRN (00:24)
[2020-05-16 01:52] LABS: Hematocrit 21.2 % (30.3-42.9); Hemoglobin 7.1 gm/dl (10.1-14.3)
[2020-05-16] MEDS: HEPARIN 5,000 UNIT/1 ML VIAL SUB-Q SCH ×3 (04:40→21:37)
[2020-05-16] MEDS: PRENATAL VIT27-FE FUMARATE-FOLIC ACID VIT TAB PO SCH ×2 (10:00→10:17)
[2020-05-16] MEDS: oxyCODONE /ACETAMINOPHEN 5-325MG TAB PO PRN ×2 (10:17→17:29)
--- NOTE | 2020-05-16 11:18 | Progress Note ---
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 Patient alert, awake and resting on room air. O2 saturation 98%. Denies chest pain, shortness of breath. Has slight cough. Patient has history of smoking for 12 years. She she stopped smoking recently.Patient running low grade temp at times. Has leukocytosis. Patients recent WBC count 20.7 Patients to days HGB 7.1, HCT 21.2 Patient is on S/C Heparin 5000 units S/C q 8 hours. Patient using incentive spirometry. Obtaining chest xray PA and Lateral - Patient Problems (1) Hemorrhagic shock Current Visit: Yes Status: Acute Plan to address problem: Improved . Blood pressure 145/93 (2) bleeding Current Visit: Yes Status: Acute Plan to address problem: Patient has Hysterectomy. (3) S/P Current Visit: Yes Status: Acute Plan to address problem: Management as per [employer]. (4) Thrombocytopenia Current Visit: Yes Status: Acute Plan to address problem: Last platelet count [id number]. Continue monitor plates. If they are dropping, recommend D/C S/C Heparin (5) Multiple sclerosis Current Visit: Yes Status: Acute Plan to address problem: Management as per primary care. (6) Morbid obesity with BMI of 45.0-49.9, adult Current Visit: Yes Status: Acute Plan to address problem: Recommend to loose weight. Exercise and diet. Recommend sleep study as out patient. Subjective Date of service: 05/16/20 Principal diagnosis: Hemorrhagic shock; PPH; s/p C/S; Obesity; ABLA; Thrombocytopenia; M.S. 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 Patient alert, awake and resting on room air. O2 saturation 98%. Denies chest pain, shortness of breath. Has slight cough. Patient has history of smoking for 12 years. She she stopped smoking recently.Patient running low grade temp at times. Has leukocytosis. Patients recent WBC count 20.7 Patients to days HGB 7.1, HCT 21.2 Patient is on S/C Heparin 5000 units S/C q 8 hours. Patient using incentive spirometry. Objective Vital Signs - 12hr 05/16/20 05/16/20 05/16/20 00:15 00:30 00:40 Temperature 98.2 F 98.2 F Pulse Rate 93 H 79 Respiratory 20 18 Rate Blood Pressure 162/88 173/97 155/85 Blood Pressure 155/85 [Left] O2 Sat by Pulse 98 97 Oximetry 05/16/20 05/16/20 05/16/20 01:00 01:15 04:41 Temperature 99.5 F Pulse Rate 88 88 98 H Respiratory 18 Rate Blood Pressure 147/75 159/82 155/77 Blood Pressure [Left] O2 Sat by Pulse 97 97 98 Oximetry 05/16/20 08:10 Temperature 98.8 F Pulse Rate 97 H Respiratory 18 Rate Blood Pressure Blood Pressure 158/86 [Left] O2 Sat by Pulse 99 Oximetry Constitutional: no acute distress, alert Eyes: non-icteric ENT: oropharynx moist Neck: supple, no lymphadenopathy, no JVD Effort: normal Ascultation: Bilateral: diminished breath sounds Percussion: Bilateral: not dull Cardiovascular: regular rate and rhythm Gastrointestinal: normoactive bowel sounds, soft, non-tender, non-distended (post abdomen), other Integumentary: normal Extremities: no cyanosis, no edema, pulses normal, no ischemia or petechiae Neurologic: normal mental status, non-focal exam, pupils equal and round, motor strength normal and Psychiatric: mood appropriate, affect normal CBC and BMP: 05/16/20 00:57 05/15/20 04:49 ABG, PT/INR, D-dimer: PT/INR, D-dimer PT 12.9 Sec. (12.2-14.9) 05/15/20 04:49 INR 0.99 (0.87-1.13) 05/15/20 04:49 Abnormal lab findings: Abnormal Labs 05/11/20 05/11/20 05/11/20 14:15 14:15 14:15 WBC RBC 3.44 L Hgb Hct 30.2 L MCHC 35 H RDW Plt Count Lymph % (Auto) [place] % (Auto) [place] # (Auto) Seg Neutrophils % Seg Neutrophils # PT INR Sodium BUN Creatinine 0.4 L Glucose Uric Acid 2.3 L Calcium Magnesium Lactate Dehydrogenase 190 H Total Protein Albumin Ur Total Protein 24 Hr Urine Total Protein Membranes Rupture Crossmatch See Detail 05/12/20 05/12/20 05/12/20 00:29 05:44 14:23 WBC RBC Hgb Hct MCHC RDW Plt Count Lymph % (Auto) [place] % (Auto) [place] # (Auto) Seg Neutrophils % Seg Neutrophils # PT INR Sodium BUN Creatinine Glucose Uric Acid Calcium Magnesium 4.10 H 4.40 H 4.50 H Lactate Dehydrogenase Total Protein Albumin Ur Total Protein 24 Hr Urine Total Protein Membranes Rupture Crossmatch 05/12/20 05/12/20 05/13/20 18:40 20:30 00:48 WBC RBC Hgb Hct MCHC RDW Plt Count Lymph % (Auto) [place] % (Auto) [place] # (Auto) Seg Neutrophils % Seg Neutrophils # PT INR Sodium BUN Creatinine Glucose Uric Acid Calcium Magnesium 4.00 H 4.60 H Lactate Dehydrogenase Total Protein Albumin Ur Total Protein 24 Hr 2167.50 H Urine Total Protein 85 H Membranes Rupture Crossmatch 05/13/20 05/13/20 05/13/20 05:57 14:57 18:01 WBC RBC Hgb Hct MCHC RDW Plt Count Lymph % (Auto) [place] % (Auto) [place] # (Auto) Seg Neutrophils % Seg Neutrophils # PT INR Sodium BUN Creatinine Glucose Uric Acid Calcium Magnesium 4.70 H 4.80 H Lactate Dehydrogenase Total Protein Albumin Ur Total Protein 24 Hr Urine Total Protein Membranes Rupture Positive A Crossmatch 05/13/20 05/14/20 05/14/20 18:42 00:14 04:57 WBC RBC Hgb Hct MCHC RDW Plt Count Lymph % (Auto) [place] % (Auto) [place] # (Auto) Seg Neutrophils % Seg Neutrophils # PT INR Sodium BUN Creatinine 0.5 L Glucose Uric Acid 2.3 L Calcium Magnesium 4.60 H 4.70 H 4.50 H Lactate Dehydrogenase Total Protein Albumin Ur Total Protein 24 Hr Urine Total Protein Membranes Rupture Crossmatch 05/14/20 05/14/20 05/14/20 04:57 10:35 10:39 WBC 27.8 H RBC 2.30 L 2.66 L Hgb 7.2 L D 7.9 L Hct 20.3 L D 23.1 L MCHC 36 H RDW Plt Count 95 L Lymph % (Auto) [place] % (Auto) [place] # (Auto) Seg Neutrophils % Seg Neutrophils # PT INR Sodium BUN Creatinine Glucose Uric Acid Calcium Magnesium Lactate Dehydrogenase Total Protein Albumin Ur Total Protein 24 Hr Urine Total Protein Membranes Rupture Crossmatch See Detail 05/14/20 05/14/20 05/14/20 10:39 10:39 20:18 WBC RBC Hgb 8.3 L Hct 24.4 L MCHC RDW Plt Count Lymph % (Auto) [place] % (Auto) [place] # (Auto) Seg Neutrophils % Seg Neutrophils # PT 15.3 H INR 1.23 H Sodium 136 L BUN 6 L Creatinine Glucose 127 H Uric Acid Calcium 5.9 L* Magnesium Lactate Dehydrogenase Total Protein 3.1 L Albumin 1.9 L Ur Total Protein 24 Hr Urine Total Protein Membranes Rupture Crossmatch 05/15/20 05/15/20 05/16/20 04:49 04:49 00:57 WBC 20.7 H RBC 2.54 L Hgb 7.2 L 7.1 L Hct 20.8 L 21.2 L MCHC 35 H RDW 16.2 H Plt Count 137 L Lymph % (Auto) 11.6 L [place] % (Auto) 9.9 H [place] # (Auto) 2.1 H Seg Neutrophils % 78.2 H Seg Neutrophils # 16.2 H PT INR Sodium BUN 6 L Creatinine 0.5 L Glucose Uric Acid Calcium 7.0 L D Magnesium Lactate Dehydrogenase Total Protein Albumin Ur Total Protein 24 Hr Urine Total Protein Membranes Rupture Crossmatch Allied health notes reviewed: nursing
--- NOTE | 2020-05-16 22:46 | Progress Note ---
Assessment and Plan POD 2 s/p ltcs with subsequent GREGORIA for post hemorrhage. Pt obstetrically improving and her blood pressure has remained at baseline. Pt is still having extreme difficulty with movement of right side that predates delivery. Will have patient evaluated by PT/OT to prepare for discharge planning. Continue current method of care. Subjective - Subjective Date of service: 05/16/20 Principal diagnosis: Hemorrhagic shock; PPH; s/p C/S; Obesity; ABLA; Thrombocytopenia; M.S. Interval history: Pt is a 34 year old G32 who is now s/p primary ltcs for nrfht and gregoria for hemorrhage. Pt is doing well. She is tolerating po, has good flatus. Pt continues to have elevated bp however. She has adequate pain control. Patient reports: appetite normal, voiding normally, pain well controlled, f latus, other [place]: doing well Objective - Vital Signs Latest vital signs: Vital Signs Temp Pulse Resp BP BP Pulse Ox 05/16/20 21:04 98.2 F 100 H 20 146/91 97 05/16/20 16:00 99.1 F 103 H 18 145/93 100 05/16/20 12:30 98.0 F 98 H 18 145/84 98 05/16/20 08:10 98.8 F 97 H 18 158/86 99 05/16/20 04:41 99.5 F 98 H 18 155/77 98 05/16/20 01:15 88 159/82 97 05/16/20 01:00 88 147/75 97 05/16/20 00:40 98.2 F 79 18 155/85 155/85 97 05/16/20 00:30 173/97 05/16/20 00:15 98.2 F 93 H 20 162/88 98 Intake and Output 05/16/20 05/16/20 05/16/20 06:59 14:59 22:59 Intake Total 300 480 Output Total 1900 2950 1400 Balance -1600 -2950 -920 Intake: Oral 480 Intake, Free Water 300 Output: Urine 1900 2950 1400 Indwelling Catheter 1900 2100 Void 850 1400 Other: Total, Intake Amount 480 Total, Output Amount 6192 589 1132 Voiding Method Indwelling Catheter # Voids Void 1 - Exam Cardiovascular: Present: Regular rate, Normal S1, Normal S2 Lungs: Present: Clear to auscultation, Normal air movement Abdomen: Present: normal appearance, soft, normal bowel sounds Incision: Present: normal, dry, intact - Labs Labs: Abnormal lab results 05/16/20 Range/Units 00:57 Hgb 7.1 L (10.1-14.3) gm/dl Hct 21.2 L (30.3-42.9) %
[2020-05-17] MEDS: HEPARIN 5,000 UNIT/1 ML VIAL SUB-Q SCH ×2 (06:02→14:27)
--- NOTE | 2020-05-17 09:09 | XRay Report ---
CHEST 2 VIEWS INDICATION: Hemorrhagic shock, Morbid Obesity.. COMPARISON: None FINDINGS: Support devices: None. Heart: Within normal limits. Lungs/pleura: No acute air space or interstitial disease. No pneumothorax. Additional findings: None. IMPRESSION: Unremarkable chest films. Signer Name: Bill Lerma Jr, MD Signed: 05/17/2020 9:04 AM Workstation Name: [id number]
[2020-05-17] MEDS: PRENATAL VIT27-FE FUMARATE-FOLIC ACID VIT TAB PO SCH (10:04)
[2020-05-17] MEDS: NIFEdipine XL 90 MG TAB PO SCH (10:04)
[2020-05-17] MEDS: hydrALAZINE 20 MG/1 ML INJ IV PRN (12:29)
[2020-05-17] MEDS: oxyCODONE /ACETAMINOPHEN 5-325MG TAB PO PRN (12:53)
--- NOTE | 2020-05-17 12:53 | Discharge Summary ---
Providers - Providers Date of Admission: 05/12/20 15:31 Date of discharge: 05/17/20 Attending physician: ISAEL PLATT 05/14/20 04:21 Consult to Supervisor Assembling [CONS] Routine Reason For Exam: 05/14/20 10:08 Consult to Physician [CONS] Routine Comment: Dr. Jauregui spoke w/ dr. 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 Needs home care management 05/16/20 22:42 Physical Therapy Evaluation and Treat [CONS] Urgent Comment: Reason For Exam: right sided weakness secondary to MS Weight bearing status?: Partial wt bearing Assistive devices?: Yes: walker Primary care physician: ISAEL PLATT Hospitalization Reason for admission: induction of labor Delivery: Procedure: primary low transverse Incision: normal, dry, intact Other procedures: other (hysterectomy) complications: transfusion, uterine atony Discharge diagnosis: IUP at term delivered Anthony baby: female Hospital course: unremarkable Condition at discharge: Good Disposition: DC-01 TO HOME OR SELFCARE - Discharge Diagnoses (1) Hemorrhagic shock Status: Acute (2) Morbid obesity with BMI of 45.0-49.9, adult Status: Acute (3) Multiple sclerosis Status: Acute (4) bleeding Status: Acute (5) S/P Status: Acute Plan - Discharge Medications Prescriptions: Docusate Sodium [Colace] 100 mg PO BID PRN #60 capsule PRN Reason: Constipation Ibuprofen [Motrin 800 MG tab] 800 mg PO Q6H PRN #60 tablet PRN Reason: Pain, Mild (1-3) oxyCODONE /ACETAMINOPHEN [Percocet 5/325 mg] 2 tab PO Q6HR PRN #40 tablet PRN Reason: Pain NIFEdipine XL [Procardia Xl] 90 mg PO Q12HR #60 tablet - Provider Discharge Summary Activity: routine, no sex for 6 weeks, no heavy lifting 4 weeks, no strenuous exercise Diet: routine Instructions: routine Additional instructions: [] Smoking cessation referral if applicable(refer to patient education folder for contact #) [] Refer to [facility] Call your doctor immediately for: * Fever > 100.5 * Heavy vaginal bleeding ( >1 pad per hour) * Severe persistent headache * Shortness of breath * Reddened, hot, painful area to leg or breast * Drainage or odor from incision. * Keep incision clean and dry at all times and follow doctor's instructions regarding bathing/showering - Follow up plan Follow up: ISAEL PLATT MD [Primary Care Provider] - 7 Days
--- NOTE | 2020-05-17 14:07 | Progress Note ---
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 Patient alert, awake and resting on room air. O2 saturation 99%. Denies chest pain, shortness of breath or cough. Patient has history of smoking for 12 years. She she stopped smoking recently.Patient afebrile. Has leukocytosis. Patients recent WBC count 20.7 Patients to days HGB 7.1, HCT 21.2 Patients chest xray done 05/17/20 reported Unremarkable chest films. Patient is on S/C Heparin 5000 units S/C q 8 hours. Patient using incentive spirometry. - Patient Problems (1) Hemorrhagic shock Current Visit: Yes Status: Acute Plan to address problem: Improved . Blood pressure 156/94 (2) bleeding Current Visit: Yes Status: Acute Plan to address problem: Patient has Hysterectomy. (3) S/P Current Visit: Yes Status: Acute Plan to address problem: Management as per AIRPORT REPRESENTATIVE. (4) Thrombocytopenia Current Visit: Yes Status: Acute Plan to address problem: Last platelet count [id number]. Continue monitor plates. If they are dropping, recommend D/C S/C Heparin (5) Multiple sclerosis Current Visit: Yes Status: Acute Plan to address problem: Management as per primary care. (6) Morbid obesity with BMI of 45.0-49.9, adult Current Visit: Yes Status: Acute Plan to address problem: Recommend to loose weight. Exercise and diet. Recommend sleep study as out patient. Subjective Date of service: 05/17/20 Principal diagnosis: Hemorrhagic shock; PPH; s/p C/S; Obesity; ABLA; Thrombocytopenia; M.S. 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 Patient alert, awake and resting on room air. O2 saturation 99%. Denies chest pain, shortness of breath or cough. Patient has history of smoking for 12 years. She she stopped smoking recently.Patient afebrile. Has leukocytosis. Patients recent WBC count 20.7 Patients to days HGB 7.1, HCT 21.2 Patients chest xray done 05/17/20 reported Unremarkable chest films. Patient is on S/C Heparin 5000 units S/C q 8 hours. Patient using incentive spirometry. Objective Vital Signs - 12hr 05/17/20 05/17/20 05/17/20 05:25 08:43 12:21 Temperature 98.0 F 97.7 F 98.1 F Pulse Rate 102 H 99 H 94 H Respiratory 20 18 18 Rate Blood Pressure 154/98 154/95 168/101 Blood Pressure [Left] O2 Sat by Pulse 100 98 99 Oximetry 05/17/20 12:49 Temperature Pulse Rate 102 H Respiratory Rate Blood Pressure Blood Pressure 156/94 [Left] O2 Sat by Pulse Oximetry Constitutional: no acute distress, alert Eyes: non-icteric ENT: oropharynx moist Neck: supple, no lymphadenopathy, no JVD Effort: normal Ascultation: Bilateral: diminished breath sounds Percussion: Bilateral: not dull Cardiovascular: regular rate and rhythm Gastrointestinal: normoactive bowel sounds, soft, non-tender, non-distended (post abdomen), other Integumentary: normal Extremities: no cyanosis, no edema, pulses normal, no ischemia or petechiae Neurologic: normal mental status, non-focal exam, pupils equal and round, motor strength normal and Psychiatric: mood appropriate, affect normal CBC and BMP: 05/16/20 00:57 05/15/20 04:49 ABG, PT/INR, D-dimer: PT/INR, D-dimer PT 12.9 Sec. (12.2-14.9) 05/15/20 04:49 INR 0.99 (0.87-1.13) 05/15/20 04:49 Abnormal lab findings: Abnormal Labs 05/11/20 05/11/20 05/11/20 14:15 14:15 14:15 WBC RBC 3.44 L Hgb Hct 30.2 L MCHC 35 H RDW Plt Count Lymph % (Auto) Knott % (Auto) Knott # (Auto) Seg Neutrophils % Seg Neutrophils # PT INR Sodium BUN Creatinine 0.4 L Glucose Uric Acid 2.3 L Calcium Magnesium Lactate Dehydrogenase 190 H Total Protein Albumin Ur Total Protein 24 Hr Urine Total Protein Membranes Rupture Crossmatch See Detail 05/12/20 05/12/20 05/12/20 00:29 05:44 14:23 WBC RBC Hgb Hct MCHC RDW Plt Count Lymph % (Auto) Knott % (Auto) Knott # (Auto) Seg Neutrophils % Seg Neutrophils # PT INR Sodium BUN Creatinine Glucose Uric Acid Calcium Magnesium 4.10 H 4.40 H 4.50 H Lactate Dehydrogenase Total Protein Albumin Ur Total Protein 24 Hr Urine Total Protein Membranes Rupture Crossmatch 05/12/20 05/12/20 05/13/20 18:40 20:30 00:48 WBC RBC Hgb Hct MCHC RDW Plt Count Lymph % (Auto) Knott % (Auto) Knott # (Auto) Seg Neutrophils % Seg Neutrophils # PT INR Sodium BUN Creatinine Glucose Uric Acid Calcium Magnesium 4.00 H 4.60 H Lactate Dehydrogenase Total Protein Albumin Ur Total Protein 24 Hr 2167.50 H Urine Total Protein 85 H Membranes Rupture Crossmatch 05/13/20 05/13/20 05/13/20 05:57 14:57 18:01 WBC RBC Hgb Hct MCHC RDW Plt Count Lymph % (Auto) Knott % (Auto) Knott # (Auto) Seg Neutrophils % Seg Neutrophils # PT INR Sodium BUN Creatinine Glucose Uric Acid Calcium Magnesium 4.70 H 4.80 H Lactate Dehydrogenase Total Protein Albumin Ur Total Protein 24 Hr Urine Total Protein Membranes Rupture Positive A Crossmatch 05/13/20 05/14/20 05/14/20 18:42 00:14 04:57 WBC RBC Hgb Hct MCHC RDW Plt Count Lymph % (Auto) Knott % (Auto) Knott # (Auto) Seg Neutrophils % Seg Neutrophils # PT INR Sodium BUN Creatinine 0.5 L Glucose Uric Acid 2.3 L Calcium Magnesium 4.60 H 4.70 H 4.50 H Lactate Dehydrogenase Total Protein Albumin Ur Total Protein 24 Hr Urine Total Protein Membranes Rupture Crossmatch 05/14/20 05/14/20 05/14/20 04:57 10:35 10:39 WBC 27.8 H RBC 2.30 L 2.66 L Hgb 7.2 L D 7.9 L Hct 20.3 L D 23.1 L MCHC 36 H RDW Plt Count 95 L Lymph % (Auto) Knott % (Auto) Knott # (Auto) Seg Neutrophils % Seg Neutrophils # PT INR Sodium BUN Creatinine Glucose Uric Acid Calcium Magnesium Lactate Dehydrogenase Total Protein Albumin Ur Total Protein 24 Hr Urine Total Protein Membranes Rupture Crossmatch See Detail 05/14/20 05/14/20 05/14/20 10:39 10:39 20:18 WBC RBC Hgb 8.3 L Hct 24.4 L MCHC RDW Plt Count Lymph % (Auto) Knott % (Auto) Knott # (Auto) Seg Neutrophils % Seg Neutrophils # PT 15.3 H INR 1.23 H Sodium 136 L BUN 6 L Creatinine Glucose 127 H Uric Acid Calcium 5.9 L* Magnesium Lactate Dehydrogenase Total Protein 3.1 L Albumin 1.9 L Ur Total Protein 24 Hr Urine Total Protein Membranes Rupture Crossmatch 05/15/20 05/15/20 05/16/20 04:49 04:49 00:57 WBC 20.7 H RBC 2.54 L Hgb 7.2 L 7.1 L Hct 20.8 L 21.2 L MCHC 35 H RDW 16.2 H Plt Count 137 L Lymph % (Auto) 11.6 L Knott % (Auto) 9.9 H Knott # (Auto) 2.1 H Seg Neutrophils % 78.2 H Seg Neutrophils # 16.2 H PT INR Sodium BUN 6 L Creatinine 0.5 L Glucose Uric Acid Calcium 7.0 L D Magnesium Lactate Dehydrogenase Total Protein Albumin Ur Total Protein 24 Hr Urine Total Protein Membranes Rupture Crossmatch Chest x-ray: report reviewed, image reviewed Additional Studies: CHEST 2 VIEWS 05/17/20 INDICATION: Hemorrhagic shock, Morbid Obesity.. COMPARISON: None FINDINGS: Support devices: None. Heart: Within normal limits. Lungs/pleura: No acute air space or interstitial disease. No pneumothorax. Additional findings: None. IMPRESSION: Unremarkable chest films. Allied health notes reviewed: nursing
[2020-05-17 16:46] VITALS: BP 136/81
== END 2020-05-17 17:15 | disposition home or self-care (01) | DRG 765 ==
LOC: TRG 13:38 → APU 13:40 → TRG 17:47 → LD 18:53 → OBSVTOIN 05-12 15:31 → CC1 05-14 08:58 → OB 05-15 16:22
PROVIDERS: ADMIT Obstetrics & Gynecology; ATTEND Obstetrics & Gynecology
PROC: 0UT90ZL Resection of Uterus, Supracervical, Open Approach (ICD-10-PCS; principal; 2020-05-14)
PROC: 10D00Z1 Extraction of Products of Conception, Low, Open Approach (ICD-10-PCS; 2020-05-14)
PROC: 30233K1 Transfusion of Nonautologous Frozen Plasma into Peripheral Vein, Percutaneous Approach (ICD-10-PCS; 2020-05-14)
PROC: 30233N1 Transfusion of Nonautologous Red Blood Cells into Peripheral Vein, Percutaneous Approach (ICD-10-PCS; 2020-05-14)
PROC: 30233R1 Transfusion of Nonautologous Platelets into Peripheral Vein, Percutaneous Approach (ICD-10-PCS; 2020-05-14)
PROC: 3E0234Z Introduction of Serum, Toxoid and Vaccine into Muscle, Percutaneous Approach (ICD-10-PCS; 2020-05-15)
PROC: 3E0134Z Introduction of Serum, Toxoid and Vaccine into Subcutaneous Tissue, Percutaneous Approach (ICD-10-PCS; 2020-05-15)
DX: O76 Abnormality in fetal heart rate and rhythm complicating labor and delivery (principal); O75.1 Shock during or following labor and delivery; D62 Acute posthemorrhagic anemia; Z20.822 Contact with and (suspected) exposure to COVID-19; O11.4 Pre-existing hypertension with pre-eclampsia, complicating childbirth; E66.01 Morbid (severe) obesity due to excess calories; O99.02 Anemia complicating childbirth; O99.214 Obesity complicating childbirth; O75.89 Other specified complications of labor and delivery; O98.32 Other infections with a predominantly sexual mode of transmission complicating childbirth; A60.00 Herpesviral infection of urogenital system, unspecified; O99.12 Other diseases of the blood and blood-forming organs and certain disorders involving the immune mechanism complicating childbirth; D69.6 Thrombocytopenia, unspecified; O99.354 Diseases of the nervous system complicating childbirth; G35 Multiple sclerosis; D72.829 Elevated white blood cell count, unspecified; O69.1XX0 Labor and delivery complicated by cord around neck, with compression, not applicable or unspecified; Z23 Encounter for immunization; Z3A.35 35 weeks gestation of pregnancy; Z37.0 Single live birth; Z87.891 Personal history of nicotine dependence
CPT/HCPCS: 36415; 59025; 71046; 76805; 76815; 80048; 80053; 81001; 82565; 83615; 83735; 84112; 84156; 84450; 84460; 84550; 85014; 85018; 85025; 85027; 85610; 85730; 86850; 86900; 86901; 86920; 88307; 96360; 96361; 96365; 96366; 96367; 96368; 96372; 96374; 96376; G0378; J0290; J0360; J0690; J0702; J1100; J1200; J1644; J1885; J2250; J2270; J2370; J2405; J2590; J2704; J2710; J3010; J3475; J7030; J7040; J7120; P9016; P9017; P9035; U0003